=== PATIENT | male | born 1960 | race Caucasian/White ===

== ENCOUNTER 2023-09-17 10:48 | Outpatient (OUT) | payer MEDICARE, SELFPAY ==
--- NOTE | 2023-09-17 10:49 | VEIN_ITS ---
[facility] [place] [address] Patient Name: SUZANNA ESPINAL MRN: [id number] date: 1960 Sex: M Assigned Patient Location: Current Patient Location: Accession/Order Number: [id number] Exam Date: 09/17/2023 10:49 Report Date: 09/20/2023 15:14 At the request of: JORGE LUIS OWUSU Procedure: VC SEGMENTAL PRESSURES EXAM: BILATERAL LOWER EXTREMITY ARTERIAL SEGMENTAL PRESSURES HISTORY: I79.3 PVD Peripheral vascular disease Indication: Claudication COMPARISON: Venous reflux study same day FINDINGS: Segmental pressures presented as follows (right, left) in mmHg. Brachial: 95, 97. Upper thigh: NA/162. Lower thigh: 155/144. Calf: 159/150. DPA: 130/133. PROGRAM COORDINATOR EXECUTIVE EDUCATION: 141/142. 1st Toe: NA/110 MARIXA: 1.45, 1.46. The ABIs are abnormally high indicating calcification/vessel hardening PVR waveforms: Right leg: Thigh: Delayed systolic upstroke, blunted systolic peak, pulse elongation with presence of a dicrotic notch Above knee: Normal Below knee: Normal Right ankle: Left leg: Thigh: Delayed systolic upstroke, blunted systolic peak, pulse elongation with presence of a dicrotic notch Above knee: mild peripheral arterial disease Below knee: moderate peripheral arterial disease Right ankle: Delayed systolic upstroke, blunted systolic peak VEIN/VC SEGMENTAL PRESSURES IMPRESSION: Elevated ABIs suggesting vessel calcification/vessel hardening. Wave form suggests mild to moderate peripheral artery disease Electronically authenticated by: MATY STILL Date: 09/20/2023 15:14
--- NOTE | 2023-09-17 10:49 | VEIN_ITS ---
Patient Name: SUZANNA ESPINAL MR#: [id number] : 1960 Exam Date: 09/17/2023 Ordering Doctor: JORGE LUIS OWUSU M.D. RADIOLOGY REPORT PROCEDURE: VC EXT VENOUS REFLUX FAYE LMTD COMPARISON: None. INDICATIONS: I83.813 Pain due to varicose veins of bilateral legs TECHNIQUE: Duplex imaging of the lower extremity to assess the deep and superficial venous system for the presence of deep or superficial venous incompetence and to document the location and severity of disease. The study includes evaluation of the great saphenous vein (GSV), anterior accessory saphenous vein (AASV) and small saphenous vein (SSV). Patient scanned in reverse Trendelenburg and standing. FINDINGS: RIGHT LOWER EXTREMITY: Saphenofemoral Junction Reflux: YesNo 6.0mm sec GSV: Diam (mm) Reflux/ Time (sec) Proximal Thigh 5.8 No Mid Thigh 2.2 No Distal Thigh 3.1 No Prox Calf 2.9 No Mid Calf 2.0 No Saphenopopliteal Junction Reflux: 4.0mm No SSV: Proximal Calf 3.7 No Mid Calf 3.0 No AASV: Proximal Thigh 4.8 No Mid Thigh Distal Thigh Thrombi: No acute or chronic thrombus visualized Compressibility: Normal Flow: Normal Preforator: Right mid medial 2.6 mm with 0s of reflux Tech Note: Competent SFJ/SPJ. No patent varicose veins LEFT LOWER EXTREMITY: Saphenofemoral Junction Reflux: Yes 15.1 mm 1.2 sec GSV: Diam (mm) Reflux/Time (sec) Proximal Thigh 9.1 Yes 0.6 Mid Thigh 3.6 Yes 0.5 Distal Thigh 3.1 No Prox Calf 1.6 No Mid Calf 1.5 Yes 0.6 Saphenopopliteal Junction Relux: 3.7 mm No SSV: Proximal Calf 1.6 No Mid Calf 1.7 No AASV: Proximal Thigh 4.5 Yes 0.9 Mid Thigh 2.9 No Distal Thigh Thrombi: No acute or chronic thrombus visualized Compressibility: Normal Flow: Normal Braided Band Assembler: Left medial mid 2.8 mm 0 s of reflux; 2.3 mm with 0s of reflux Tech Note: Incompetent SFJ/competent SPJ. No patent varicose veins CONCLUSION: 1. Normal right leg 2. Borderline/minimal left great saphenous vein reflux with proximal dilatation and saphenofemoral junction reflux 3. Mild reflux proximal left anterior accessory saphenous vein 4. No patent varicose veins 1. Dictated by: Christiano Hull MD on 09/17/2023 at 13:05 Approved by: Christiano Hull MD on 09/17/2023 at 13:06
== END 2023-09-17 10:49 | disposition home or self-care (01) ==
LOC: VC 10:48
PROVIDERS: PCP Family Medicine; Visit Provider Student in an Organized Health Care Education/Training Program
DX: I83.813 Varicose veins of bilateral lower extremities with pain (principal); I73.9 Peripheral vascular disease, unspecified
CPT/HCPCS: 93923; 93970

== ENCOUNTER 2023-11-11 09:55 | Outpatient (OUT) | payer MEDICARE, SELFPAY ==
--- NOTE | 2023-11-11 10:08 | ECG_ITS ---
[facility] Test Date: 2023-11-11 Pat Name: SUZANNA ESPINAL Department: Room: - Gender: Male Feed Handler: : 1960 Requested By: Order Number: [id number] Reading MD: AGUSTO HERRERA Measurements Intervals Alvin Rate: 62 P: 22 ME: 173 QRS: -9 QRSD: 89 T: 26 QT: 401 QTc: 409 Interpretive Statements SINUS RHYTHM No previous ECG available for comparison Electronically Signed On 11-11-2023 21:45:37 EDT by AGUSTO HERRERA
--- OUTSIDE RECORDS SUMMARY | 2023-11-11 10:16 | XMS_ITS | CCD ---
Author Organization [facility] Care Team Providers Care Tomato Pulper Operator Name Role Phone IRMA TORRES Attending Lexie Roe Primary Care Unavailable Lexie Cannon Consulting Unavailable OFELIA DONOHUE Admitting UnavailOFELIA Murcia Attending Zehra Cannon MD Primary Care Unavailable OFELIA DONOHUE Attending Zehra Cannon MD Primary Care Unavailable Lexie Cannon Consulting Unavailable BRANDY GALE Attending Unavail kunal Cannon MD Primary Care Unavailable Lexie Cannon Consulting Unavailable IRMA TORRES Attending Rebecca Pascual MD Primary Care Unavailable IRMA TORRES Attending Rebecca Pascual MD Primary Care Unavailable JACINTO, DR MAR Attending Unavailable JACINTO, DR MAR Consulting Unavailable DR ZAID CASEY Primary Care Unavailable JACINTO, DR MAR Admitting Unavailable WAI DINH Attending Unavailable Ben Sheldon Consulting Unavailable WAI DINH Admitting Unavailable DR LEXIE CANNON Primary Care Unavailable WAI DINH Consulting Unavailable JORGE LUIS OWUSU Attending Unavailable LEXIE CANNON Referring Unavailable LEXIE CANNON Primary Care Unavailable JORGE LUIS OWUSU Attending Unavailable LEXIE CANNON Referring Unavailable LEXIE CANNON Primary Care Unavailable WAI DINH Attending Rebecca valentin Allergies Allergy Classification Reported Allergen(s) Allergy Type Date of Onset Reaction(s) Facility (1 source) Cephalexin; Translations: [Keflex] Drug Allergy [facility] Repository (1 source) Cephalexin; Translations: [CEPHALEXIN] Drug Allergy 12-06-2017 [facility] Repository Problems Active Problems Problem Classification Problem Date Documented Da te Episodic/Chronic Other connective tissue disease (1 source) Pain in lower limb Onset: 10-28-2023 Episodic Residual codes; unclassified (4 sources) Disorientation, unspecified; Translations: [DISORIENTATION UNSPECIFIED] Onset: 12-20-2020 Episodic Unclassified (1 source) Varicose Veins Onset: 10-28-2023 Unclassified (1 source) Bilateral Leg Pain Onset: 09-09-2023 Varicose veins of lower extremity (1 source) Varicose veins of bilateral lower extremities with pain; Translations: [Varicose veins of bilateral lower extremities with pain] Onset: 09-09-2023 Episodic Viral infection (1 source) COVID-19; Translations: [COVID-19] Onset: 04-16-2020 Past or Other Problems Problem Classification Problem Date Documented Da te Episodic/Chronic Immunizations and screening for infectious disease (3 sources) Contact with and (suspected) exposure to other viral communicable diseases; Translations: [CONTCT EXPS OTH VIRL COMMUNICABL DZ] Onset: 04-08-2020 Episodic Results Test Name Value Interpretation Reference Range Facility US Segmental Pressures/PVR, Bilateral, Loweron 07-13-2022 US Segmental Pressures/PVR, Bilateral, Lower COMPARISON: NONE. TECHNIQUE: Segmental pressures and waveforms of the bilateral lower extremities were obtained. FINDINGS: There are triphasic waveforms in the bilateral lower extremities from the thighs to the level of the ankles and toes. Segmental pressures are as follows in mm/Hg Right brachial 105, left brachial 113. Right lower extremity: Upper thigh 163, mid thigh 161, calf 131, ankle 155 PT, 131 DP, metatarsal 135, great toe 110. Left lower extremity: Upper thigh 166, mid thigh 160, calf 133, ankle 132 PT, 130 DP, metatarsal 135, great toe 91 IMPRESSION: The study is normal with triphasic waveforms and normal pressures of both lower extremities. Report reported and signed by ANG BRIONES on 07/15/2022 0921 Normal [facility] Construction Supervisor/Carpenter XR Ankle Complete Left*on XR Ankle Complete Left* Findings: Ankle mortise intact. No fracture, dislocation, bone lesion. IMPRESSION: Negative left ankle. Report reported and signed by Fletcher Gonzáles on 07/14/2022 1054 Normal [facility] Construction Supervisor/Carpenter XR Ankle Complete Righton XR Ankle Complete Right Findings: Ankle mortise intact. No fracture, dislocation, bone lesion. IMPRESSION: Negative right ankle. Report reported and signed by Fletcher Signer on 07/14/2022 1054 Normal [facility] Construction Supervisor/Carpenter XR Knee Complete Left Standi ngon 07-13-2022 XR Knee Complete Left Standing Findings: No fracture, dislocation, bone lesion, effusion. IMPRESSION: Negative left knee. Report reported and signed by Fletcher Signer on 07/14/2022 1053 Normal [facility] Construction Supervisor/Carpenter XR Knee Complete Right Stand ingon 07-13-2022 XR Knee Complete Right Standing Findings: No fracture, dislocation, bone lesion, effusion. IMPRESSION: Negative right knee. Report reported and signed by Fletcher Signer on 07/14/2022 1055 Normal [facility] Lipid Panelon 10-23-2021 Cholesterol [Mass/Vol] 115 mg/dL Low 125-200 [facility] Comment on above: Result Comment: Low risk < 200mg/dL Borderline risk 201-239 mg/dl High risk > or equal to 240 Performed By: #### 2 1436R, 873, 4021, 53839, 402X, 561 #### [facility] [address] [place] [address] Cholesterol in HDL [Mass/Vol] 30 mg/dL Low >40 [facility] Comment on above: Result Comment: High Cardiovascular Risk HDL <40 mg/dL Low Cardiovascular Risk HDL > or equal to 60 mg/dl Performed By: #### 2 1436R, 873, 4021, 21412, 402X, 561 #### [facility] [address] [place] [address] Cholesterol in LDL [Mass/Vol] 49 mg/dL Normal [facility] Comment on above: Result Comment: LDL ATP III CLASSIFICATION LDL less than 100 mg/dl Optimal LDL 100-129 mg/dl Near or above optimal LDL 130-159 Borderline high LDL 160-189 High LDL greater than 189 mg/dl Very High Performed By: #### 2 1436R, 873, 4021, 77774, 402X, 561 #### [facility] [address] [place] [address] Cholesterol in VLDL [Mass/Vol] 36 mg/dL Normal [facility] Comment on above: Performed By: #### 2 1436R, 873, 4021, 04141, 402X, 561 #### [facility] [address] [place] [address] Cholesterol.total/ Cholesterol in HDL [Mass ratio] 4 {ratio} Normal [facility] Comment on above: Performed By: #### 2 1436R, 873, 4021, 37735, 402X, 561 #### [facility] [address] [place] [address] Triglyceride [Mass/Vol] 178 mg/dL High 30-150 [facility] Comment on above: Result Comment: TRIG ATPIII CLASSIFICATIONS TRIG less than 150 mg/dl Normal TRIG 150-199 mg/dl Borderline High TRIG 200-500 mg/dl High TRIG greather than 500 mg/dl Very High Performed By: #### 2 1436R, 873, 4021, 14508, 402X, 561 #### [facility] [address] [place] [address] Microalbumin (with Creat)on 10-23-2021 mALB <1.2 Low [facility] Comment on above: Result Comment: Unab le to calculate mALB/Crea ratio, mALB is <1.2 mg/dL mALB reference range not established. Performed By: #### 2 1436R, 873, 4021, 69753, 402X, 561 #### [facility] [address] [place] [address] UCREA 271 mg/dL High 39-259 [facility] Comment on above: Performed By: #### 2 1436R, 873, 4021, 04314, 402X, 561 #### [facility] [address] [place] [address] Vitamin D 25-OHon 10-23-2021 VIT D 25 OH 47 ng/ml Normal >29 [facility] Comment on above: Result Comment: Yokasta min D Status Deficiency <20 ng/mL Insufficiency 20-29 ng/mL Optimal 30-100 ng/mL Possible Toxicity >=150 ng/mL Performed By: #### 2 1436R, 873, 4021, 09451, 402X, 561 #### [facility] [address] [place] [address] ALT (SGPT)on 09-25-2021 ALT [Catalytic activity/Vol] 30 U/L Normal 9-46 [facility] Comment on above: Result Comment: 04/16 Female reference range changed. Performed By: #### 2 1436R, 873, 4021, 97994, 402X, 561 #### [facility] [address] [place] [address] AST (SGOT)on 09-25-2021 AST [Catalytic activity/Vol] 25 U/L Normal 10-40 [facility] Comment on above: Performed By: #### A ST #### [facility] [address] [place] [id number] Complete Blood Count with Au to Diffon 07-17-2021 Basophils (Bld) [#/Vol] 0.06 10*3/uL Normal 0.00-0.20 [facility] Comment on above: Performed By: #### 2 1436R, 873, 4021, 33925, 402X, 561 #### [facility] [address] [place] [address] Basophils/100 WBC (Bld) 0.6 % Normal [facility] Comment on above: Performed By: #### 2 1436R, 873, 4021, 83600, 402X, 561 #### [facility] [address] [place] [address] Eosinophils (Bld) [#/Vol] 0.22 10*3/uL Normal 0.02-0.50 [facility] Comment on above: Performed By: #### 2 1436R, 873, 4021, 14028, 402X, 561 #### [facility] [address] [place] [address] Eosinophils/100 WBC (Bld) 2.3 % Normal [facility] Comment on above: Performed By: #### 2 1436R, 873, 4021, 05595, 402X, 561 #### [facility] [address] [place] [address] Erythrocyte distribution width (RBC) [Ratio] 12.7 % Normal 11.0-15.0 [facility] Comment on above: Performed By: #### 2 1436R, 873, 4021, 52471, 402X, 561 #### [facility] [address] [place] [address] Hematocrit (Bld) [Volume fraction] 47.1 % Normal 38.5-50.0 [facility] Comment on above: Performed By: #### 2 1436R, 873, 4021, 48019, 402X, 561 #### [facility] [address] [place] [address] Hemoglobin (Bld) [Mass/Vol] 15.4 g/dL Normal 13.0-17.1 [facility] Comment on above: Performed By: #### 2 1436R, 873, 4021, 95806, 402X, 561 #### [facility] [address] [place] [address] Lymphocytes (Bld) [#/Vol] 1.8 10*3/uL Normal 0.9-3.9 [facility] Comment on above: Performed By: #### 2 1436R, 873, 4021, 70864, 402X, 561 #### [facility] [address] [place] [address] Lymphocytes/100 WBC (Bld) 19.1 % Normal [facility] Comment on above: Performed By: #### 2 1436R, 873, 4021, 64013, 402X, 561 #### [facility] [address] [place] [address] MCH (RBC) [Entitic mass] 30.0 pg Normal 27.0-33.0 [facility] Comment on above: Performed By: #### 2 1436R, 873, 4021, 20453, 402X, 561 #### [facility] [address] [place] [address] MCHC (RBC) [Mass/Vol] 32.7 g/dL Normal 32.0-36.0 [facility] Comment on above: Performed By: #### 2 1436R, 873, 4021, 69413, 402X, 561 #### [facility] [address] [place] [address] MCV (RBC) [Entitic vol] 92 fL Normal 80-100 [facility] Comment on above: Performed By: #### 2 1436R, 873, 4021, 14582, 402X, 561 #### [facility] [address] [place] [address] Monocytes (Bld) [#/Vol] 0.7 10*3/uL Normal 0.2-0.9 [facility] Comment on above: Performed By: #### 2 1436R, 873, 4021, 22216, 402X, 561 #### [facility] [address] [place] [address] Monocytes/100 WBC (Bld) 7.3 % Normal [facility] Comment on above: Performed By: #### 2 1436R, 873, 4021, 83261, 402X, 561 #### [facility] [address] [place] [address] Neutrophils (Bld) [#/Vol] 6.8 10*3/uL Normal 1.5-7.8 [facility] Comment on above: Performed By: #### 2 1436R, 873, 4021, 16923, 402X, 561 #### [facility] [address] [place] [address] Neutrophils/100 WBC (Bld) 70.4 % Normal [facility] Comment on above: Performed By: #### 2 1436R, 873, 4021, 32967, 402X, 561 #### [facility] [address] [place] [address] Platelet mean volume (Bld) [Entitic vol] 13.30 fL High 7.50-12.50 [facility] Comment on above: Performed By: #### 2 1436R, 873, 4021, 31123, 402X, 561 #### [facility] [address] [place] [address] Platelets (Bld) [#/Vol] 208 10*3/uL Normal 140-400 [facility] Comment on above: Performed By: #### 2 1436R, 873, 4021, 61395, 402X, 561 #### [facility] [address] [place] [address] RBC (Bld) [#/Vol] 5.14 10*6/uL Normal 4.20-5.80 [facility] Construction Supervisor/Carpenter Comment on above: Performed By: #### 2 1436R, 873, 4021, 78705, 402X, 561 #### [facility] [address] [place] [address] RDW-SD 43.0 fL Normal 37.0-50.0 [facility] Construction Supervisor/Carpenter Comment on above: Performed By: #### 2 1436R, 873, 4021, 97022, 402X, 561 #### [facility] [address] [place] [address] WBC (Bld) [#/Vol] 9.7 10*3/uL Normal 3.8-11.0 Jesica rn [place] Construction Supervisor/Carpenter Comment on above: Performed By: #### 2 1436R, 873, 4021, 38022, 402X, 561 #### [facility] [address] [place] [address] Comprehensive Metabolic Pane abe 07-17-2021 Albumin [Mass/Vol] 4.3 g/dL Normal 3.6-5.1 Jesica rn [place] Construction Supervisor/Carpenter Comment on above: Performed By: #### 2 1436R, 873, 4021, 45705, 402X, 561 #### [facility] [address] [place] [address] Albumin/Globulin [Mass ratio] 2.0 {ratio} Normal 1.0-2.5 [facility] [employer] Supervisor/Carpenter Comment on above: Performed By: #### 2 1436R, 873, 4021, 88689, 402X, 561 #### [facility] [address] [place] [address] ALP [Catalytic activity/Vol] 128 U/L Normal 40-129 [facility] [employer] Supervisor/Carpenter Comment on above: Performed By: #### 2 1436R, 873, 4021, 30146, 402X, 561 #### [facility] [address] [place] [address] ALT [Catalytic activity/Vol] 25 U/L Normal 9-46 [facility] Supervisor/Carpenter Comment on above: Result Comment: 04/16 Female reference range changed. Performed By: #### 2 1436R, 873, 4021, 77283, 402X, 561 #### [facility] [address] [place] [address] Anion gap [Moles/Vol] 23 mmol/L High 12-20 [facility] Construction Supervisor/Carpenter Comment on above: Result Comment: Effe ctive 05/22/2019 reference range changed. Performed By: #### 2 1436R, 873, 4021, 81102, 402X, 561 #### [facility] [address] [place] [address] AST [Catalytic activity/Vol] 20 U/L Normal 10-40 [facility] Comment on above: Performed By: #### 2 1436R, 873, 4021, 47363, 402X, 561 #### [facility] [address] [place] [address] BUN/CREA 13 Ratio Normal 6-22 [facility] Comment on above: Performed By: #### 2 1436R, 873, 4021, 50671, 402X, 561 #### [facility] [address] [place] [address] Calcium [Mass/Vol] 9.6 mg/dL Normal 8.6-10.2 [facility] Comment on above: Performed By: #### 2 1436R, 873, 4021, 95644, 402X, 561 #### [facility] [address] [place] [address] Chloride [Moles/Vol] 103 mmol/L Normal 98-107 [facility] Comment on above: Performed By: #### 2 1436R, 873, 4021, 21296, 402X, 561 #### [facility] [address] [place] [address] CO2 [Moles/Vol] 20 mmol/L Normal 20-31 [facility] Comment on above: Performed By: #### 2 1436R, 873, 4021, 64499, 402X, 561 #### [facility] [address] [place] [address] Creatinine [Mass/Vol] 1.0 mg/dL Normal 0.7-1.4 [facility] Comment on above: Performed By: #### 2 1436R, 873, 4021, 83061, 402X, 561 #### [facility] [address] [place] [address] eGFRAA 99 mL/min/1.73m2 Normal >60 [facility] Comment on above: Performed By: #### 2 1436R, 873, 4021, 54994, 402X, 561 #### [facility] [address] [place] [address] eGFRNAA 81 mL/min/1.73m2 Normal >60 [facility] Construction Supervisor/Carpenter Comment on above: Performed By: #### 2 1436R, 873, 4021, 01933, 402X, 561 #### [facility] [address] [place] [address] Globulin (S) [Mass/Vol] 2.2 g/dL Normal 1.9-3.7 [facility] Construction Supervisor/Carpenter Comment on above: Performed By: #### 2 1436R, 873, 4021, 77890, 402X, 561 #### [facility] [address] [place] [address] Glucose [Mass/Vol] 116 mg/dL High 65-99 Jesica ibarra [place] Construction Supervisor/Carpenter Comment on above: Result Comment: For FASTING Glucose --- ADA reference ranges: Normal 65-99 mg/dl Prediabetes 100-125 Diabetes >/= 126 Performed By: #### 2 1436R, 873, 4021, 25122, 402X, 561 #### [facility] [address] [place] [address] Potassium [Moles/Vol] 4.3 mmol/L Normal 3.5-5.5 [facility] [employer] Supervisor/Carpenter Comment on above: Performed By: #### 2 1436R, 873, 4021, 71063, 402X, 561 #### [facility] [address] [place] [address] Protein [Mass/Vol] 6.5 g/dL Normal 6.1-8.1 Jesica ibarra [place] Construction Supervisor/Carpenter Comment on above: Performed By: #### 2 1436R, 873, 4021, 19318, 402X, 561 #### [facility] [address] [place] [address] Sodium [Moles/Vol] 142 mmol/L Normal 135-146 Jesica ibarra [place] Construction Supervisor/Carpenter Comment on above: Performed By: #### 2 1436R, 873, 4021, 26513, 402X, 561 #### [facility] [address] [place] [address] TBIL <0.3 Normal [facility] Construction Supervisor/Carpenter Comment on above: Performed By: #### 2 1436R, 873, 4021, 23973, 402X, 561 #### [facility] [address] [place] [address] Urea nitrogen [Mass/Vol] 13 mg/dL Normal 7-25 [facility] Construction Supervisor/Carpenter Comment on above: Performed By: #### 2 1436R, 873, 4021, 15746, 402X, 561 #### [facility] [address] [place] [address] Hemoglobin A1Con 07-17-2021 EAG 131.24 Normal [facility] [employer] Supervisor[employer]Carpenter Comment on above: Performed By: #### 2 1436R, 873, 4021, 09797, 402X, 561 #### [facility] [address] [place] [address] HbA1c (Bld) [Mass fraction] 6.2 % High 4.0-6.0 [facility] Super[facility]/Carpenter Comment on above: Performed By: #### 2 1436R, 873, 4021, 93192, 402X, 561 #### [facility] [address] [place] [address] LDL-Directon 07-17-2021 Cholesterol in LDL [Mass/Vol] 90 mg/dL Normal [facility] Comment on above: Result Comment: LDL ATP III CLASSIFICATION LDL less than 100 mg/dl Optimal LDL 100-129 mg/dl Near or above optimal LDL 130-159 Borderline high LDL 160-189 High LDL greater than 189 mg/dl Very High Performed By: #### 2 1436R, 873, 4021, 37778, 402X, 561 #### [facility] [address] [place] [address] Lipid Panelon 07-17-2021 Cholesterol [Mass/Vol] 188 mg/dL Normal 125-200 [facility] [employer] Supervisor/Carpenter Comment on above: Result Comment: Low risk < 200mg/dL Borderline risk 201-239 mg/dl High risk > or equal to 240 Performed By: #### 2 1436R, 873, 4021, 44938, 402X, 561 #### [facility] [address] [place] [address] Cholesterol in HDL [Mass/Vol] 30 mg/dL Low >40 [facility] Super[facility]arpenter Comment on above: Result Comment: High Cardiovascular Risk HDL <40 mg/dL Low Cardiovascular Risk HDL > or equal to 60 mg/dl Performed By: #### 2 1436R, 873, 4021, 27967, 402X, 561 #### [facility] [address] [place] [address] Cholesterol in VLDL [Mass/Vol] 84 mg/dL Normal [facility] Comment on above: Performed By: #### 2 1436R, 873, 4021, 74452, 402X, 561 #### [facility] [address] [place] [address] Cholesterol.total/ Cholesterol in HDL [Mass ratio] 6 {ratio} Normal [facility] Comment on above: Performed By: #### 2 1436R, 873, 4021, 78195, 402X, 561 #### [facility] [address] [place] [address] LDLD REFLEX LDL-DIRECT Normal [facility] Comment on above: Performed By: #### 2 1436R, 873, 4021, 81583, 402X, 561 #### [facility] [address] [place] [address] Triglyceride [Mass/Vol] 420 mg/dL High 30-150 [facility] Comment on above: Result Comment: TRIG ATPIII CLASSIFICATIONS TRIG less than 150 mg/dl Normal TRIG 150-199 mg/dl Borderline High TRIG 200-500 mg/dl High TRIG greather than 500 mg/dl Very High Performed By: #### 2 1436R, 873, 4021, 99788, 402X, 561 #### [facility] [address] [place] [address] Prostatic Specific Antigen, Totalon 07-17-2021 TPSA 1.120 ng/mL Normal <4.000 [facility] Comment on above: Result Comment: PSA Test Method: ECLIA/David e 601 Performed By: #### P SA #### [facility] [address] [place] [id number] Q - CORTISOL,TOTAL,SERUMon 0 07-17-2021 CORTISOL, TOTAL 6.9 mcg/dL Normal [facility] Comment on above: Order Comment: [facility] performed at: [facility], [address], [address] [facility], [place], [address], Golf Sales Manager: Joe Grossman MD [facility] Date/Time: [facility] Results Received Date/Time: [facility] Reported Date/Time: FASTING: UNKNOWN Result Comment: Refe rence Range: For 8 a.m.(7-9 a.m.) Specimen: 4.0-22.0 Reference Range: For 4 p.m.(3-5 p.m.) Specimen: 3.0-17.0 * Please interpret above results accordingly * Performed By: #### 2 1436R, 873, 4021, 80909, 402X, 561 #### [facility] [address] [place] [address] Q - DHEA SULFATEon DHEA SULFATE 34 mcg/dL Normal 32-[address] [facility] Comment on above: Order Comment: [facility] performed at: [facility] [employer] [facility], [address] [place] [address], [address] [place] [address], [id number], Golf Sales Manager: Joe Grossman MD [facility] Date/Time: [facility] Results Received Date/Time: [facility] Reported Date/Time: FASTING: UNKNOWN Result Comment: DHEA-S values fall with advancing age. For reference, the reference intervals for 31-40 year old patients are: Male: 93-415 mcg/dL Female: 19-237 mcg/dL Performed By: #### 2 1436R, 873, 4021, 08161, 402X, 561 #### [facility] [address] [place] [address] Q - ESTRADIOLon 07-17-2021 ESTRADIOL 57 pg/mL High < OR = 39 [facility] Comment on above: Order Comment: [facility] performed at: [facility] [facility], [address] [place] [address], [address] [place] [address], [phone], Golf Sales Manager: Joe Grossman MD [facility] Date/Time: [facility] Results Received Date/Time: [facility] Reported Date/Time: FASTING: UNKNOWN Result Comment: Refe rence range established on post-pubertal patient population. No pre-pubertal reference range established using this assay. For any patients for whom low Estradiol levels are anticipated (e.g. males, pre-pubertal children and hypogonadal/post-menopausal females), the [facility] Estradiol, Ultrasensitive, LCMSMS assay is recommended (order code 51889). Please note: patients being treated with the drug fulvestrant (Faslodex(R)) have demonstrated significant interference in immunoassay methods for estradiol measurement. The cross reactivity could lead to falsely elevated estradiol test results leading to an inappropriate clinical assessment of estrogen status. [facility] order code [id number], Ultrasensitive LC/MS/MS demonstrates negligible cross reactivity with fulvestrant. Performed By: #### 2 1436R, 873, 4021, 76593, 402X, 561 #### [facility] [address] [place] [address] Q - INSULIN,SERUMon 07-18-19 INSULIN 118.6 uIU/mL [facility] Construction Supervisor/Carpenter Comment on above: Order Comment: [facility] performed at: Q, [facility], [address] [place] [address], [address] [place], [address], Golf Sales Manager: Joe Grossman MD [facility] Collection Date/Time: [facility] Results Received Date/Time: [facility] Reported Date/Time: [id number] FASTING: UNKNOWN Result Comment: Refe rence Range < or = 19.6 Risk: Optimal < or = 19.6 Moderate NA High >19.6 Adult cardiovascular event risk category cut points (optimal, moderate, high) are based on [facility] population data from 04/2011. This insulin assay shows strong cross-reactivity for some insulin analogs (lispro, aspart, and glargine) and much lower cross-reactivity with others (detemir, glulisine). Performed By: #### 2 1436R, 873, 4021, 16375, 402X, 561 #### [facility] [address] [place] [address] Q - TESTOSTERONE,FREE (LC/MS /MS)on 07-17-2021 TESTOSTERONE, FREE 49.2 pg/mL Normal 46.0-224.0 [facility] Comment on above: Order Comment: [facility] performed at: [facility], [facility], [address], [place], [place], , Golf Sales Manager: Ariel Bush M.D.,PhD [facility] Collection Date/Time: [facility] Results Received Date/Time: [facility] Reported Date/Time: FASTING: UNKNOWN Result Comment: The concentration of free testosterone is derived from a mathematical model using total testosterone by LCMSMS, sex hormone binding globulin and albumin. This test was developed and its analytical performance characteristics have been determined by [facility] [place], [place]. It has not been cleared or approved by the U.S. Food and Drug Administration. This assay has been validated pursuant to the CLIA regulations and is used for clinical purposes. Performed By: #### 2 1436R, 873, 4021, 87996, 402X, 561 #### [facility] [address] [place] [address] Q - TESTOSTERONE,TOTAL,MALES (ADULT),IMMUNOASAYon 07-17-2021 TESTOSTERONE, TOTAL, MALES (ADULT), [place] 551 ng/dL Normal 250-827 [facility] Comment on above: Order Comment: [facility] performed at: [facility], [facility], [address] [facility], [address] [place], [address], Golf Sales Manager: Joe Grossman MD [facility] Collection Date/Time: [facility] Results Received Date/Time: [facility] Reported Date/Time: FASTING: UNKNOWN Performed By: #### 2 1436R, 873, 4021, 29747, 402X, 561 #### [facility] [address] [place] [address] TSH w/ Reflex to Free T4on 0 07-17-2021 TSH 0.963 uIU/mL Normal 0.400-4.500 [facility] Construction Supervisor/Carpenter Comment on above: Performed By: #### 2 1436R, 873, 4021, 95460, 402X, 561 #### [facility] [address] [place] [address] Vitamin B12/Folateon 022 Cobalamin (Vitamin B12) [Mass/Vol] 497 pg/mL Normal 211-946 [facility] Construction Supervisor/Carpenter Comment on above: Performed By: #### 2 1436R, 873, 4021, 85364, 402X, 561 #### [facility] [address] [place] [address] FOL 16.8 ng/mL Normal >4.7 [facility] Construction Supervisor/Carpenter Comment on above: Result Comment: Refe rence range change 04/02/2017. Prior reference range F 4.8-37.3 ng/mL, M 4.5-32.2 ng/mL. Performed By: #### 2 1436R, 873, 4021, 21614, 402X, 561 #### [facility] [address] [place] [address] Vitamin D 25-OHon 07-17-2021 VIT D 25 OH 26 ng/ml Low >29 [facility] Construction Supervisor/Carpenter Comment on above: Result Comment: Y[place]asta min D Status Deficiency <20 ng/mL Insufficiency 20-29 ng/mL Optimal 30-100 ng/mL Possible Toxicity >=150 ng/mL Performed By: #### 2 1436R, 873, 4021, 30107, 402X, 561 #### [facility] [address] [place] [address] CT HEAD WO CONon 12-20-2020 CT HEAD WO CON EXAMINATION: CT HEAD WO CON HISTORY: Disorientated memory loss. COMPARISON: None. TECHNIQUE: CT examination of the head without IV contrast. Dose reduction techniques were achieved by using automated exposure control and/or adjustment of mA and/or kV according to patient size and/or use of iterative reconstruction technique. FINDINGS: The ventricles and basilar cisterns are within normal limits. Marked hypodensities periventricular regions and centrum semiovale consistent with microangiopathic change and previous vascular insult. No acute intra-axial or extra-axial hemorrhage. No midline shift mass effect or edema. IMPRESSION: No acute hemorrhage Electronically authenticated by: BEN SHELDON Date: 2020-12-20 15:18 Normal [facility] COVID-19 PCRon 04-10-2020 SARS-CoV-2 (COVID-19) RNA HELENE+probe Ql (Unsp spec) Detected Abnormal Not Detected [facility] Comment on above: Result Comment: This nucleic acid amplification test was developed and its performance characteristics determined by [facility]. Nucleic acid amplification tests include PCR and TMA. This test has not been FDA cleared or approved. This test has been authorized by FDA under an Emergency Use Authorization (EUA). This test is only authorized for the duration of time the declaration that circumstances exist justifying the authorization of the emergency use of in vitro diagnostic tests for detection of SARS-CoV-2 virus and/or diagnosis of COVID-19 infection under section 564(b)(1) of the Act, 21 U.S.C. 360bbb-3(b) (1), unless the authorization is terminated or revoked sooner. When diagnostic testing is negative, the possibility of a false negative result should be considered in the context of a patient's recent exposures and the presence of clinical signs and symptoms consistent with COVID-19. An individual without symptoms of COVID-19 and who is not shedding SARS-CoV-2 virus would expect to have a negative (not detected) result in this assay. Performed By: #### C VDPCR #### [facility] [address] [place] [address] [facility] Neurosurgery Office/Clinic Chris armando 2018 Neurosurgery Office/Clinic Note Chief Complaint PT STATES- POST OP (07/01) Physical Exam Vitals & Measurements BP: 138/86 HT: 185 cm WT: 124.6 kg DOSE WT: 124.6 kg BMI: 36.41 Additional Vitals Body Mass Index Measured: 36.41 kg/m2 BP Position/Location: Sitting, Left arm Peripheral Pulse Rate: 76 bpm Assessment/Plan 1. History of fusion of cervical spine Ordered: Referral to Physical Therapy 2. Cervical radiculopathy Ordered: Referral to Physical Therapy 3. DDD (degenerative disc disease), cervical Orders: External Referral Physician Comments Patient is a pleasant 58-year-old male with a history of previous C5 [address] Ortiz in [place] in 2014 who presents to the outpatient neurosurgical clinic today for continued postoperative follow-up. Patient is status removal of hardware at C5 6 with C6 7 ACDF performed 07/01/18 secondary to adjacent segment disease with intractable right C7 radiculopathy and early motor neuropathy. Initially, an artificial disc was considered/planned, however the decision was made to proceed with ACDF intraoperatively based on the patient's anatomy. Patient has done well postoperatively with resolution in his pre-operative pain syndrome and he denies complaints today. Patient reports complete resolution of his preoperative right upper extremity C7 radicular pain. He denies significant neck pain or myospasms. He denies radicular pain into his upper extremities. He denies numbness or paresthesias in his upper extremities. He denies motor weakness in the upper extremities and feels that his preoperative right tricep weakness has resolved. He denies decreased dexterity. He denies headaches. He denies incisional problems or incisional drainage. He denies fevers, chills, nausea, or vomiting. He denies dysphagia. He is no longer requiring narcotics or medication management. Patient reports compliance with his cervical collar. Flexion/extension x-rays of the cervical spine completed prior to office visit today 09/29/18 appear satisfactory with good hardware placement, no suggestion of hardware loosening, and adequate bony integration in the interbody space. On exam in the office, patient presents in a Mumford collar with proper fit and alignment. Trachea is midline with easy mobilization and vocal quality is normal. Anterior cervical incision is well-healed without surrounding erythema, edema, induration, or tenderness to palpation. Cervical spine is without deformities. Minimal myospasms are noted throughout the dorsal cervical paravertebral musculature without associated tenderness to palpation. Muscle strength is 5 out of 5 and equal bilateral upper extremities. DTRs are 2 out of 4 and equal bilateral upper extremities. Gait is normal. At this time, patient is approximately 3 months postop from a C6 7 ACDF. He has done well postoperatively with resolution in his preoperative right C7 radicular syndrome and denies complaints today. He is very satisfied with his progress thus far. His incision has healed well without suggestion of infectious complications and flexion/extension x-rays of the cervical spine prior to office visit today appear satisfactory with suggestion of a solid arthrodesis. That said, patient will be mobilized out of his cervical collar. He is to continue to avoid aspirin/NSAIDs for a minimum of 6 months postoperatively. He may continue to drive, lift up to 15-20 pounds, and ease into light activity. He should not participate in any heavy physical activity until completion of post operative physical therapy and an order is provided. Patient will initiate post operative physical therapy and follow up in our office in 4-6 weeks. He is to call sooner with changes, problems, or concerns. Patient states understanding and is in agreement with the above-stated plan. Patient's case is discussed with Dr. Donohue who is in agreement with the above-stated plan. Problem List/Past Medical History Ongoing Cervical radiculopathy DDD (degenerative disc disease), cervical History of fusion of cervical spine HTN - Hypertension Hyperlipidemia Neck pain JUAN C (obstructive sleep apnea) Pain Historical No qualifying data Procedure/Surgical History Appendectomy CERVICAL FUSION Discectomy Cervical Anterior (Left) (07/01/2018) EXPLORATION OF SPINAL FUSION (07/01/2018) INSJ BIOMECHANICAL DEVICE (07/01/2018) NECK SPINE FUSE&REMOV BEL C2 (07/01/2018) SP BONE ALGRFT STRUCT ADD-ON (07/01/2018) Medications lisinopril 10 mg oral tablet, 20 mg, 2 tabs, Oral, Daily Allergies Keflex (hives) Social History Alcohol Never Exercise Nutrition/Health Regular, Caffeine intake amount: 1 cup of coffee per day and 2 pops per day. Substance Abuse Denies All Tobacco Former smoker, quit more than 30 days ago Use:. Family History Breast cancer: Mother and Sibling. Diabetes mellitus: Father, Grandfather (P) and Sibling. Fibromyalgia: Mother. Malignant tumor of lung: Grandfather (M). Stroke: Mother, Father, Grandmother (M) and Grandmother (P). Diagnostic Results No qualifying data available (XRay) No qualifying data available (CT) No qualifying data available (Ultrasound) No qualifying data available (MRI) Electronically signed by _ Irma Torres PA-C 09/29/18 12:06 EDT Normal [facility] XR Spine Cervical 2 or 3 Samuel martinez 2018 XR Spine Cervical 2 or 3 Views Views: Lateral neutral, flexion, and extension Indication: Anterior cervical spine surgery 219 in 58 years Male Comparisons: 08/12/2018 Findings: There has been anterior cervical fusion at C6-7 with plate and screws, and bony fusion at C5-6 and C6-7. The past there were plates and screws at C5-6 which have now been removed. The pharynx, epiglottis, vallecula, and upper airway are unremarkable. The prevertebral soft tissues and spinolaminar line are normal. There is no spinal stenosis. There is no fracture, subluxation, lytic or blastic lesion. Disc Height: Residual discs are normal Vertebral body height: Normal The odontoid process is normal. There is no instability on flexion or extension Impression: Revision of the C5-6 hardware fusion with removal of plate and screws and new C6-7 hardware and bony fusion. No instability on flexion or extension Final Dictated by: Franck Rodriguez MD Dictated DT/TM: 2018 11:18 am Signed by: Franck Rodriguez MD Signed (Electronic Signature): 2018 11:22 am (If Report Is Signed, Electronically Signed in Other Vendor System) Normal [facility] Neurosurgery Office/Clinic N tr 08-18-2018 Neurosurgery Office/Clinic Note Chief Complaint PT STATES- POST OP VISIT (CERVICAL FUSION 07/01) Physical Exam Vitals & Measurements BP: 130/78 HT: 185 cm WT: 122.1 kg DOSE WT: 122.1 kg BMI: 35.68 Additional Vitals Body Mass Index Measured: 35.68 kg/m2 BP Position/Location: Sitting, Left arm Peripheral Pulse Rate: 68 bpm Assessment/Plan 1. History of fusion of cervical spine Ordered: XR Spine Cervical 2 or 3 Views 2. Cervical radiculopathy Ordered: XR Spine Cervical 2 or 3 Views 3. DDD (degenerative disc disease), cervical Ordered: XR Spine Cervical 2 or 3 Views Physician Comments Patient is a pleasant 57-year-old male with a history of previous C5 [address] Ortiz in [place] in 2014 who presents to the outpatient neurosurgical clinic today for continued postoperative follow-up. Patient is status removal of hardware at C5 6 with C6 7 ACDF performed 07/01/18 secondary to adjacent segment disease with intractable right C7 radiculopathy and early motor neuropathy. Initially, an artificial disc was considered/planned, however the decision was made to proceed with ACDF intraoperatively based on the patient's anatomy. Patient has done well postoperatively with resolution in his pre-operative pain syndrome and he denies complaints today. Patient reports complete resolution of his preoperative right upper extremity C7 radicular pain. He denies significant neck pain or myospasms. He denies radicular pain into his upper extremities. He denies numbness or paresthesias in his upper extremities. He denies motor weakness in the upper extremities and feels that his preoperative right tricep weakness has resolved. He denies decreased dexterity. He denies headaches. He denies incisional problems or incisional drainage. He denies fevers, chills, nausea, or vomiting. He notes only very minimal dysphagia which continues to lessen with time. He is no longer requiring narcotics and reports rare use of baclofen. Patient reports compliance with his cervical collar. AP/lateral x-rays of the cervical spine completed prior to office visit today (08/12/18) appears satisfactory with good hardware placement, no suggestion of hardware loosening, and early bony integration in the interbody space. On exam in the office, patient presents in a Mumford collar with proper fit and alignment. Trachea is midline with easy mobilization and vocal quality is normal. Anterior cervical incision is well-healed without surrounding erythema, edema, induration, or tenderness to palpation. Cervical spine is without deformities. Minimal myospasms are noted throughout the dorsal cervical paravertebral musculature without associated tenderness to palpation. Muscle strength is 5 out of 5 and equal bilateral upper extremities. DTRs are 2 out of 4 and equal bilateral upper extremities. Gait is normal. At this time, patient is approximately 6 weeks postop from a C6 7 ACDF. He has done well postoperatively with resolution in his preoperative right C7 radicular syndrome and denies complaints today. He is very satisfied with his progress thus far. His incision has healed well without suggestion of infectious complications and new AP/lateral x-rays of the cervical spine from 08/12/18 appear satisfactory. That said, patient is to continue in his cervical collar. He is to continue to avoid aspirin/NSAIDs for a minimum of 6 months postoperatively. He may continue to drive, lift up to 10 pounds, and continue sedentary work duties. He is encouraged to ambulate, but should not participate in any heavier physical activity than walking. Patient will have flexion/extension x-rays of the cervical spine out of the collar in 6 weeks in follow-up in our office at that time. He is to call sooner with changes, problems, or concerns. Patient states understanding and is in agreement with the above-stated plan. Patient's case is discussed with Dr. Donohue who is in agreement with the above-stated plan. Problem List/Past Medical History Ongoing Cervical radiculopathy DDD (degenerative disc disease), cervical History of fusion of cervical spine HTN - Hypertension Hyperlipidemia Neck pain JUAN C (obstructive sleep apnea) Pain Historical No qualifying data Procedure/Surgical History Appendectomy CERVICAL FUSION Discectomy Cervical Anterior (Left) (07/01/2018) EXPLORATION OF SPINAL FUSION (07/01/2018) INSJ BIOMECHANICAL DEVICE (07/01/2018) NECK SPINE FUSE&REMOV BEL C2 (07/01/2018) SP BONE ALGRFT STRUCT ADD-ON (07/01/2018) Medications baclofen 10 mg oral tablet, 10 mg, Oral, [id number] Times, Not taking lisinopril 10 mg oral tablet, 20 mg, 2 tabs, Oral, Daily Allergies Keflex (hives) Social History Alcohol Never Exercise Nutrition/Health Regular, Caffeine intake amount: 1 cup of coffee per day and 2 pops per day. Substance Abuse Denies All Tobacco Former smoker, quit more than 30 days ago Use:. Family History Breast cancer: Mother and Sibling. Diabetes mellitus: Father, Grandfather (P) and Sibling. Fibromyalgia: Mother. Malignant tumor of lung: Grandfather (M). Stroke: Mother, Father, Grandmother (M) and Grandmother (P). Diagnostic Results No qualifying data available. No qualifying data available. No qualifying data available. No qualifying data available. Electronically signed by _ Irma Torres PA-C 08/18/18 13:21 EDT Electronically signed by _ Davion Patel MD 02/13/2019 07:46 EDT Normal [facility] XR Spine Cervical 2 or 3 Samuel martinez 08-12-2018 XR Spine Cervical 2 or 3 Views History: Postoperative cervical fusion. TECHNIQUE: 2 views of the cervical spine were obtained compared to 07/11/2018. FINDINGS: The alignment is normal. There are mild degenerative changes C4-5 disc space. There is been fusion of C5-C7 with metallic plate anterior to C6 and C7 no fracture, compression deformity or subluxation is seen. No complication involving the hardware. IMPRESSION: Stable postoperative changes. No acute process or complication is seen. Final Dictated by: Suzanna Gonzalez MD Dictated DT/TM: 08/12/2018 4:48 pm Signed by: Suzanna Gonzalez MD Signed (Electronic Signature): 08/12/2018 4:49 pm (If Report Is Signed, Electronically Signed in Other Vendor System) Normal [facility] Neurosurgery Office/Clinic N tr 07-22-2018 Neurosurgery Office/Clinic Note Chief Complaint PT STATES- CERVICAL FUSION- POST OP 07/01 Physical Exam Vitals & Measurements BP: 104/72 HT: 185 cm WT: 119 kg DOSE WT: 119 kg BMI: 34.77 Additional Vitals Body Mass Index Measured: 34.77 kg/m2 BP Position/Location: Sitting, Left arm Peripheral Pulse Rate: 88 bpm Assessment/Plan 1. History of fusion of cervical spine Ordered: XR Spine Cervical 2 or 3 Views 2. DDD (degenerative disc disease), cervical 3. Cervical radiculopathy Physician Comments Patient is a pleasant 57-year-old male with a history of previous C5 [address] Ortiz in [place] in 2014 who presents to the outpatient neurosurgical clinic today for continued postoperative follow-up. Patient is status removal of hardware at C5 6 with C6 7 ACDF performed 07/01/18 secondary to adjacent segment disease with intractable right C7 radiculopathy and early motor neuropathy. Initially, an artificial disc was considered/planned, however the decision was made to proceed with ACDF intraoperatively based on the patient's anatomy. Patient has done well postoperatively. He was seen in our office 07/11/18 (approximately 10 days postop) with complaints of myospasm and intrascapular pain. AP/lateral x-rays of the cervical spine were obtained and appeared satisfactory. Patient was reassured and advised to utilize his muscle relaxers as prescribed. Today, patient states that the previous issues have dissipated with time and medication management, such that at the time of office visit today, he denies complaints. Patient reports complete resolution of his preoperative right upper extremity C7 radicular syndrome. He denies significant neck pain or myospasms. He denies radicular pain into his upper extremities. He denies numbness or paresthesias in his upper extremities. He denies motor weakness in the upper extremities and feels that his preoperative right tricep weakness has resolved. He denies decreased dexterity. He denies headaches. He denies incisional problems or incisional drainage. He denies fevers, chills, nausea, or vomiting. He notes only very minimal dysphagia which continues to lessen with time. He is no longer requiring narcotics and reports rare use of baclofen. On exam in the office, patient presents in a Mumford collar with proper fit and alignment. Trachea is midline with easy mobilization and vocal quality is normal. Anterior cervical incision is well-healed without surrounding erythema, edema, induration, or tenderness to palpation. Good approximation of incision borders without drainage or dehiscence. Cervical spine is without deformities. Minimal myospasms are noted throughout the dorsal cervical paravertebral musculature without associated tenderness to palpation. Muscle strength is 5 out of 5 and equal bilateral upper extremities. DTRs are 2 out of 4 and equal bilateral upper extremities. Gait is normal. At this time, patient is approximately 3 weeks postop from a C6 7 ACDF. He has done well postoperatively with resolution in his preoperative right C7 radicular syndrome and denies complaints today. He is very satisfied with his progress thus far. His incision has healed well without suggestion of infectious complications and AP/lateral x-rays of the cervical spine from 07/11/18 appears satisfactory. That said, patient is to continue in his cervical collar. He is to continue to avoid aspirin/NSAIDs for a minimum of 6 months postoperatively. He will be released to drive, lift up to 10 pounds, and return to sedentary work duties. He is encouraged to ambulate, but should not participate in any heavier physical activity than walking. Patient will have new AP and lateral x-rays of the cervical spine in 4 weeks in follow-up in our office at that time. He is to call sooner with changes, problems, or concerns. Patient states understanding and is in agreement with the above-stated plan. Patient's case is discussed with Dr. Donohue who is in agreement with the above-stated plan. Problem List/Past Medical History Ongoing Cervical radiculopathy DDD (degenerative disc disease), cervical History of fusion of cervical spine HTN - Hypertension Hyperlipidemia Neck pain JUAN C (obstructive sleep apnea) Pain Historical No qualifying data Procedure/Surgical History Appendectomy CERVICAL FUSION Discectomy Cervical Anterior (Left) (07/01/2018) EXPLORATION OF SPINAL FUSION (07/01/2018) INSJ BIOMECHANICAL DEVICE (07/01/2018) NECK SPINE FUSE&REMOV BEL C2 (07/01/2018) SP BONE ALGRFT STRUCT ADD-ON (07/01/2018) Medications baclofen 10 mg oral tablet, 10 mg, Oral, [id number] Times lisinopril 10 mg oral tablet, 20 mg, 2 tabs, Oral, Daily Allergies Keflex (hives) Social History Alcohol Never Exercise Nutrition/Health Regular, Caffeine intake amount: 1 cup of coffee per day and 2 pops per day. Substance Abuse Denies All Tobacco Former smoker, quit more than 30 days ago Use:. Family History Breast cancer: Mother and Sibling. Diabetes mellitus: Father, Grandfather (P) and Sibling. Fibromyalgia: Mother. Malignant tumor of lung: Grandfather (M). Stroke: Mother, Father, Grandmother (M) and Grandmother (P). Diagnostic Results No qualifying data available. No qualifying data available. No qualifying data available. No qualifying data available. Electronically signed by _ Irma Torres PA-C 07/22/18 11:01 EST Normal [facility] XR Spine Cervical 2 or 3 Samuel martinez 07-13-2018 XR Spine Cervical 2 or 3 Views C-spine radiographs on 07/11/2018 Clinical History: Postoperative evaluation Comparison: C-spine radiographs on 03/16/2018 Findings: 2 views of the cervical spine were obtained. The vertebral body heights and alignment are within normal limits. No radiographic evidence of acute fracture or dislocation. Bony fusion of the vertebral bodies of C5 and C6 with interval removal of the fusion hardware at this level. Postoperative changes compatible with anterior and interbody fusion at C6-C7. Impression: Postoperative changes compatible with anterior and interbody fusion at C6-C7 in satisfactory alignment. Bony fusion of the vertebral bodies of C5 and C6 with interval removal of the hardware at this level... Final Dictated by: Trip Hilario MD Dictated DT/TM: 07/13/2018 11:32 am Signed by: Trip Hilario MD Signed (Electronic Signature): 07/13/2018 11:41 am (If Report Is Signed, Electronically Signed in Other Vendor System) Normal [facility] Neurosurgery Office/Clinic N tr 07-11-2018 Neurosurgery Office/Clinic Note Chief Complaint Patient present for an issue with his collar after cervical surgery History of Present Illness The patient is a pleasant 57-year-old gentleman who presents to the neurosurgical office for a postoperative visit. He is currently 10 days status post removal of C5 and Sada of the plate and exploration of fusion as well as C6 7 anterior cervical discectomy with interbody fusion and osteo-synthetic plating using Medtronic [place] Elite plate. The patient presents secondary to concern regarding fit of his hard cervical collar as he finds it allows for quite a bit of movement, especially upon lateral rotation of the neck. He additionally notes rather severe pain throughout the intrascapular area most often occurring when he removes his collar to take a shower. This pain is described as severe enough to take his breath away such as being punched between the shoulder blades. He additionally notes intermittent aching/throbbing throughout the bilateral forearms most often when using the hands/arms outstretched in front of him. He denies upper extremity numbness or paresthesia. He denies fever, chills, nausea or vomiting. His appetite is normal. He denies bowel or bladder incontinence; no saddle paresthesia. He denies tachycardia, chest pain or shortness of breath. He completed his postoperative antibiotic and steroid course and is avoiding NSAIDs as directed. He typically will use tramadol at night before bed and Tylenol on occasion as needed during the day. He uses his baclofen only on rare occasion as needed. He denies incisional redness, warmth, swelling or drainage. Review of Systems Constitutional: [No fevers, chills, sweats] Eye: [No recent visual problems] ENMT: [No ear pain, nasal congestion, sore throat] Respiratory: [No shortness of breath, cough] Cardiovascular: [No Chest pain, palpitations, syncope] Gastrointestinal: [No nausea, vomiting, diarrhea, bowel incontinence] Genitourinary: [No hematuria, bladder incontinence] Physical Exam Vitals & Measurements BP: 116/88 HT: 185 cm WT: 119.8 kg DOSE WT: 119.8 kg BMI: 35 Additional Vitals Body Mass Index Measured: 35 kg/m2 BP Position/Location: Sitting, Left arm Peripheral Pulse Rate: 64 bpm The patient is pleasant, conversant, answering questions and following commands easily. He is alert and oriented. Speech is appropriate. He presents in an [place] cervical collar though there is several centimeters of gapping between the collar chin rest and the patient's jaw which was adjusted for proper fit. A collar was then removed at the time of today's visit for further examination. Left anterior neck incision with Steri-Strips in place. No obvious erythema, edema or warmth. Trachea is midline. Normal voice quality. The patient demonstrates normal respiratory effort. He is found to have mild tenderness to palpation throughout the intrascapular with mild diffuse myospasm in the areas. Upper extremity motor exam reveals 5/5 strength, symmetric bilaterally. He has regained trapezial muscle strength right side. 2+ radial pulses. Gait reveals normal base, station, liz and stride length. Assessment/Plan 1. S/P cervical spinal fusion Ordered: XR Spine Cervical 2 or 3 Views 2. Muscle spasm Ordered: XR Spine Cervical 2 or 3 Views The patient is a pleasant 57-year-old gentleman currently 10 days status post removal of C5 6 [place] of the plate and exploration of fusion followed by C6 7 anterior cervical discectomy with interbody fusion and osteo-synthetic plating with Medtronic [place] over the plate. Surgery was completed 07/01/[address] 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 At this time, the patient appears to be having pain related to myospasm at times when collar is removed such as when he takes a shower. I did discuss continuing his muscle relaxant as well as utilizing alternative methods such as ice and heat to the area for added benefit. It is difficult to discern the cause for the throbbing sensation throughout his forearms though may be related to post neuro decompression versus residual from intraoperative neuro monitoring. We will continue to monitor this in the ongoing postoperative. He will undergo a set of AP and lateral x-rays of the cervical spine following today's visit and will return to the neurosurgical office at his 3 week postoperative appointment. Restrictions otherwise remain the same. He will notify the office of any further questions, problems or concerns. The patient notes understanding of the information discussed at the time of today's visit, questions answered. This patient was discussed with Dr. Donohue personally met with and examined him at the time of today's visit. He is in agreement with the above-mentioned plan of care. Problem List/Past Medical History Ongoing Cervical radiculopathy DDD (degenerative disc disease), cervical History of fusion of cervical spine HTN - Hypertension Hyperlipidemia Neck pain JUAN C (obstructive sleep apnea) Pain Historical No qualifying data Procedure/Surgical History Appendectomy CERVICAL FUSION Discectomy Cervical Anterior (Left) (07/01/2018) EXPLORATION OF SPINAL FUSION (07/01/2018) INSJ BIOMECHANICAL DEVICE (07/01/2018) NECK SPINE FUSE&REMOV BEL C2 (07/01/2018) SP BONE ALGRFT STRUCT ADD-ON (07/01/2018) Medications amitriptyline 25 mg oral tablet, 25 mg, 1 tabs, Oral, HS (at bedtime), PRN baclofen 10 mg oral tablet, 10 mg, Oral, [id number] Times Bactrim DS 800 mg-160 mg oral tablet, 1 tabs, Oral, BID lisinopril 10 mg oral tablet, 20 mg, 2 tabs, Oral, Daily Allergies Keflex (hives) Social History Alcohol Never Exercise Nutrition/Health Regular, Caffeine intake amount: 1 cup of coffee per day and 2 pops per day. Substance Abuse Denies All Tobacco Former smoker, quit more than 30 days ago Use:. Family History Breast cancer: Mother and Sibling. Diabetes mellitus: Father, Grandfather (P) and Sibling. Fibromyalgia: Mother. Malignant tumor of lung: Grandfather (M). Stroke: Mother, Father, Grandmother (M) and Grandmother (P). Electronically signed by _ Brandy Armando PA-C 07/11/18 17:04 EST Normal [facility] Inpatient Clinical Summaryon 07-03-2018 Inpatient Clinical Summary [id number] [address] Clinical Summary Person Information Name: Suzanna Espinal Age: 57 Years : 1960 Sex: Male PCP: MD SOCO Cannon Jennifer Marital Status: PCP: Race: White Ethnicity: Not or Language: Latvian Visit Id: Visit Reason: Speciality: Acuity: Enc Type: Observation Med Service: Surgery Arrival: 07/01/2018 06:27:23 Discharge: Dispo Type: Address: [address] [place] [address] [facility] [address] Diagnosis: 1:Cervical radiculopathy; 2:DDD (degenerative disc disease), cervical; 3:History of fusion of cervical spine Discharged To: Home Treatments: Devices/Equipment: Professional Skilled Services: Special Services and Community Resources: Mode of Discharge Transportation: Discharge Orders [facility] Functional Status: Sensory Deficits: None History of Falls: None Mobility Assistance Prior to Admission: ADLs: Minimal assistance Gait: Steady Ambulation Assist: Assistive Device: None Special Orthopedic Devices: Brace Current Level of Assistance for Self-Care/Mobility: Cognitive Status: Orientation: Orientation Assessment Oriented x 4 Level of Consciousness: Alert Characteristics of Speech: Clear Aspiration Risk: None Affect/Behavior: Appropriate, Calm, Cooperative Laboratory or Other Results This Visit (last charted value for your 07/01/2018 visit) Blood Bank 06/22/2018 9:57 AM ABO/Rh: B POS Antibody Screen: Negative [facility]SC Diagnostic Radiology 07/01/2018 12:10 PM XR Spine Cervical 2 or 3 Views: XR Spine Cervical 2 or 3 Views Measurements: Height: Weight: Blood Pressure: 135 mmHg / BMI: Respiratory: Respirations: Unlabored, Quiet Respiratory Symptoms: None Cardiovascular: Heart Sounds: Heart Rhythm: Regular Gastrointestinal: GI Symptoms: Bowel Sounds: Present Vital Signs: Temp Axillary: 36.5 degC Temp Temporal Artery: 36 degC Temp Oral: 36.6 degC Temp Rectal: Apical Heart Rate: Peripheral Pulse Rate: 81 bpm Heart Rate: 63 bpm Respiratory Rate: 14 br/min Diet Diet: Feeding Tolerance: Appetite: Good Harris Assessment: 22 Procedures Discectomy Cervical Anterior (Left) (07/01/2018) Immunizations influenza virus vaccine, inactivated (07/01/2018) HERE ARE THE MEDICATION CHANGES THAT OCCURRED DURING YOUR HOSPITAL STAY New Medications Printed Prescriptions baclofen (baclofen 10 mg oral tablet) 10 Milligram Oral (given by mouth) every 8 hours standard times. Refills: 0. Last Dose: _ dexamethasone (dexamethasone 4 mg oral tablet) 1 Tabs Oral (given by mouth) 3 times a day for 2 Days. Refills: 0. Last Dose: _ diazePAM (Valium 2 mg oral tablet) 1 Milligram Oral (given by mouth) every 8 hours for 5 Days. Refills: 0. Last Dose: _ sulfamethoxazole-trimeth oprim (Bactrim DS 800 mg-160 mg oral tablet) 1 Tabs Oral (given by mouth) 2 times a day. Refills: 0. Last Dose: _ traMADol (traMADol 50 mg oral tablet) 50 Milligram Oral (given by mouth) every 4 hours as needed pain for 7 Days. half to one tab po q4hr prn pain. Refills: 0. Last Dose: _ Medications That Have Not Changed Other Medications amitriptyline (amitriptyline 25 mg oral tablet) 1 Tabs Oral (given by mouth) once a day (at bedtime) as needed pain. Last Dose: _ lisinopril (lisinopril 10 mg oral tablet) 2 Tabs Oral (given by mouth) every day. take 1 tablet by mouth once daily. Last Dose: _ PROVIDED FOR YOU IS A LIST OF YOUR PATIENT?S CURRENT MEDICATIONS Printed Prescriptions baclofen (baclofen 10 mg oral tablet) 10 Milligram Oral (given by mouth) every 8 hours standard times. Refills: 0. dexamethasone (dexamethasone 4 mg oral tablet) 1 Tabs Oral (given by mouth) 3 times a day for 2 Days. Refills: 0. diazePAM (Valium 2 mg oral tablet) 1 Milligram Oral (given by mouth) every 8 hours for 5 Days. Refills: 0. sulfamethoxazole-trimeth oprim (Bactrim DS 800 mg-160 mg oral tablet) 1 Tabs Oral (given by mouth) 2 times a day. Refills: 0. traMADol (traMADol 50 mg oral tablet) 50 Milligram Oral (given by mouth) every 4 hours as needed pain for 7 Days. half to one tab po q4hr prn pain. Refills: 0. Other Medications amitriptyline (amitriptyline 25 mg oral tablet) 1 Tabs Oral (given by mouth) once a day (at bedtime) as needed pain. lisinopril (lisinopril 10 mg oral tablet) 2 Tabs Oral (given by mouth) every day. take 1 tablet by mouth once daily. Care Team Members: Attending Physician: Charanjit JOVEL MD, Ofelia Borges Consulting Physician: Referring Physician: Follow up: With: Address: When: Ofelia Donohue [address] [place] [id number] [phone] Business (1) Comments: As scheduled preoperatively-call [phone] to confirm appointment to be seen in the neurosurgery clinic approximately 3 weeks after surgery With: Address: When: Lexie Cannon MD [address] [place] [address] Business (1) Type Location Start Finish State Post Op Visit [facility] 07/22/2018 10:30:00 07/22/2018 11:00:00 Confirmed Normal [facility] Neurosurgery Progress Noteon 02-17-2019 Neurosurgery Progress Note Subjective Patient reports he feels considerably better Minimal neck pain, and what little he has is in the left trapezial angle No difficulty with eating or swallowing No chest pain or shortness of breath No radicular pain nor paresthesias Ambulating without difficulty Objective Vitals & Measurements T: 36.5 ?C (Axillary) T: 36.6 ?C (Oral) T: 36 ?C (Temporal Artery) HR: 63 (Monitored) RR: 14 BP: 135/84 SpO2: 92% HT: 185.42 cm WT: 119.8 kg DOSE WT: 118 kg BMI: 34.32 Additional Vitals Peripheral Pulse Rate: 81 bpm Lab Results Microbiology No qualifying data available. Diagnostic Results Diagnostic Radiology XR Spine Cervical 2 or 3 Views 07/01/18 17:16:18 Intraoperative fluoroscopic images of the C-spine on 07/01/2018Findings:4 limited intraoperative fluoroscopic [ ] obtained during cervical spine surgery done by Dr. Donohue . Total fluoro time for this procedure is 12 seconds. This dictation is for documentation only. Please refer to the OR report for details. Signed By: Sulaiman WAN, Trip Computed Tomography No qualifying data available. Ultrasound No qualifying data available. Magnetic Resonance Imaging No qualifying data available. Nuclear Medicine No qualifying data available. Physical Exam general: Comfortable and cooperative lungs: clear abdomen: soft, nontender, nondistended incision: Dressing removed by physician and no wound fullness, tracheal deviation, erythema or tenderness Neuro: mental status: awake, alert, appropriate with normal mental status exam cranial nerves: intract, no visual field deficit motor: 5/5 power all groups except triceps is 5 minus which is improved compared to before surgery gait: [] Medications Inpatient acetaminophen, 650 mg, Oral, q4hr, PRN baclofen, 10 mg, Oral, [id number] Times Bactrim DS 800 mg-160 mg oral tablet, 1 tabs, Oral, BID Cepacol Sore Throat 15 mg-3.6 mg mucous membrane lozenge, 1 lozenges, Oral, q1hr, PRN Colace, 100 mg, Oral, BID dexamethasone, 8 mg, 2 mL, IV Push, q6hr fentaNYL, 50 mcg, 1 mL, IV Push, q1hr, PRN hydrALAZINE, 10 mg, 0.5 mL, IV Push, q10min, PRN labetalol, 10 mg, 2 mL, IV Push, q10min, PRN magnesium hydroxide 8% oral suspension, 30 mL, Oral, TID multivitamin with minerals, 1 tabs, Oral, Daily Normal Saline Flush 0.9% injectable solution, 10 mL, IV Push, BID Normal Saline Flush 0.9% injectable solution, 10 mL, IV Push, As Indicated, PRN traMADol, 25 mg, Oral, q4hr, PRN traMADol, 50 mg, Oral, q4hr, PRN Valium, 1 mg, Oral, q8hr Vitamin C, 500 mg, Oral, q8hr Zofran, 4 mg, 2 mL, IV Push, q4hr, PRN Assessment/Plan 1. Cervical radiculopathy 2. DDD (degenerative disc disease), cervical 3. History of fusion of cervical spine Orders: benzocaine-menthol topical, 1 lozenges, Oral, Lozenge, q1hr, PRN sore throat, First Dose: 07/02/18 9:23:00 EST, Dispense From Location: [facility] dexamethasone, 8 mg, IV Push, Injection, q6hr, First Dose: 07/02/18 9:23:00 EST, Dispense From Location: Tusntxu-STL-6Z sulfamethoxazole-trimeth oprim, 1 tabs, Oral, Tab, BID for 3 days, First Dose: 07/02/18 21:00:00 EST, Stop Date: 07/05/18 20:59:00 EST, Dispense From Location: [id number]-TBB-6I, Prophylaxis- Pre/Post-Op traMADol, 50 mg, Oral, Tab, q4hr, PRN severe pain [7-10 on pain scale], First Dose: 07/02/18 9:23:00 EST, Dispense From Location: [place] traMADol, 25 mg, Oral, Tab, q4hr, PRN moderate pain [4-6 on pain scale], First Dose: 07/02/18 9:23:00 EST, Dispense From Location: [id number]-[id number]-[id number] EKG Postoperative day 2 status post anterior cervical discectomy C6 7 below a previous C5 6 anterior cervical discectomy Postoperative sinus tachycardia of unknown etiology has resolved Patient is comfortable and reveals no worrisome features Patient is ready for discharge to home and he is in agreement Instructions provided verbally and computer-generated education form Electronically signed by _ Charanjit JOVEL MD, Ofelia Borges 07/03/18 07:03 EST Normal [facility] Neurosurgery Progress Noteon 07-02-2018 Neurosurgery Progress Note Subjective Patient's main complaint this morning is that of headache. As it turns out, previous experiences with [place] have generated headache. No nausea or vomiting Notes odynophagia but no dysphagia and was able to eat his breakfast this morning without difficulty and no difficulty with fluids or saliva Patient has proved to be tachycardic this morning with low-grade temperature. EKG reveals sinus tachycardia. Patient denies shortness of breath, chest pain, pleurisy, diaphoresis nor does he have abdominal discomfort Urinating without difficulty Modest neck pain and no radicular pain. All paresthesias have been eliminated from right side. Notes persistent numbness on left fingertips which is chronic Objective Vitals & Measurements T: 36.5 ?C (Axillary) T: 37.6 ?C (Oral) T: 36 ?C (Temporal Artery) HR: 63 (Monitored) RR: 14 BP: 122/83 SpO2: 98% HT: 185.42 cm WT: 121.5 kg DOSE WT: 118 kg BMI: 34.32 Additional Vitals Peripheral Pulse Rate: 110 bpm High Lab Results Microbiology No qualifying data available. Diagnostic Results Diagnostic Radiology XR Spine Cervical 2 or 3 Views 07/01/18 17:16:18 Intraoperative fluoroscopic images of the C-spine on 07/01/2018Findings:4 limited intraoperative fluoroscopic [ ] obtained during cervical spine surgery done by Dr. Donohue . Total fluoro time for this procedure is 12 seconds. This dictation is for documentation only. Please refer to the OR report for details. Signed By: Sulaiman WAN, Trip Computed Tomography No qualifying data available. Ultrasound No qualifying data available. Magnetic Resonance Imaging No qualifying data available. Nuclear Medicine No qualifying data available. Physical Exam general: Comfortable cooperative with no distress; mucous membranes moist lungs: clear; incentive spirometer approximately 3000 mL-patient is educated and encouraged and improved to 3500 with oxygen saturations improving to 97-100% abdomen: soft, nontender, mildly distended incision: dressed, dry; nonswollen or full and midline trachea with normal vocal quality Neuro: mental status: awake, alert, appropriate with normal mental status exam cranial nerves: intract, no visual field deficit motor: 5/5 power all groups gait: [] Medications Inpatient acetaminophen, 650 mg, Oral, q4hr, PRN baclofen, 10 mg, Oral, [id number] Times Cepacol Sore Throat 15 mg-3.6 mg mucous membrane lozenge, 1 lozenges, Oral, q1hr, PRN Colace, 100 mg, Oral, BID dexamethasone, 8 mg, 2 mL, IV Push, q6hr Dulcolax Laxative, 10 mg, 1 supp, Rectal, Once fentaNYL, 50 mcg, 1 mL, IV Push, q1hr, PRN hydrALAZINE, 10 mg, 0.5 mL, IV Push, q10min, PRN labetalol, 10 mg, 2 mL, IV Push, q10min, PRN magnesium hydroxide 8% oral suspension, 30 mL, Oral, TID multivitamin with minerals, 1 tabs, Oral, Daily Normal Saline Flush 0.9% injectable solution, 10 mL, IV Push, BID Normal Saline Flush 0.9% injectable solution, 10 mL, IV Push, As Indicated, PRN traMADol, 25 mg, Oral, q4hr, PRN traMADol, 50 mg, Oral, q4hr, PRN Valium, 1 mg, Oral, q8hr vancomycin Vitamin C, 500 mg, Oral, q8hr Zofran, 4 mg, 2 mL, IV Push, q4hr, PRN Assessment/Plan 1. Cervical radiculopathy 2. DDD (degenerative disc disease), cervical 3. History of fusion of cervical spine Orders: acetaminophen, 650 mg, Oral, Tab, q4hr, PRN mild pain [1-3 on pain scale], First Dose: 07/01/18 14:07:00 EST, Dispense From Location: [address] ascorbic acid, 500 mg, Oral, Tab-Chew, q8hr, First Dose: 07/01/18 15:00:00 EST, Dispense From Location: [facility] baclofen, 10 mg, Oral, Tab, [id number]-Vjvyvuap Times, First Dose: 07/01/18 22:00:00 EST, Dispense From Location: [facility] benzocaine-menthol topical, 1 lozenges, Oral, Lozenge, q1hr, PRN sore throat, First Dose: 07/02/18 9:23:00 EST, Dispense From Location: [facility] bisacodyl, 10 mg, Rectal, Supp, Once, First Dose: 07/02/18 9:23:00 EST, Stop Date: 07/02/18 9:23:00 EST, Dispense From Location: [place] dexamethasone, 8 mg, IV Push, Injection, q6hr, First Dose: 07/02/18 9:23:00 EST, Dispense From Location: [facility] diazePAM, 1 mg, Oral, Tab, q8hr, First Dose: 07/01/18 15:00:00 EST, Dispense From Location: [place] docusate, 100 mg, Oral, Cap, BID, First Dose: 07/01/18 21:00:00 EST, Dispense From Location: [facility] fentaNYL, 50 mcg, IV Push, Injection, q1hr, PRN breakthrough pain, First Dose: 07/01/18 14:07:00 EST, Dispense From Location: [facility] hydrALAZINE, 10 mg, IV Push, Injection, q10min, PRN hypertension, First Dose: 07/01/18 14:07:00 EST, Dispense From Location: [facility] labetalol, 10 mg, IV Push, Injection, q10min, PRN hypertension, First Dose: 07/01/18 14:07:00 EST, Dispense From Location: [place] magnesium hydroxide, 30 mL, Oral, Susp, TID, First Dose: 07/01/18 22:00:00 EST, Dispense From Location: [facility] multivitamin with minerals, 1 tabs, Oral, Tab, Daily, First Dose: 07/02/18 9:00:00 EST, Dispense From Location: Pspvnbo-WNH-9G ondansetron, 4 mg, IV Push, Injection, q4hr, PRN nausea, First Dose: 07/01/18 14:07:00 EST, Dispense From Location: [facility]-MHR-3I sodium chloride, 10 mL, IV Push, Injection, BID, First Dose: 07/01/18 21:00:00 EST, Dispense From Location: [facility]ow-YAD-0X sodium chloride, 10 mL, IV Push, Injection, As Indicated, PRN flush, First Dose: 07/01/18 14:07:00 EST, Dispense From Location: Fibikpc-XAX-0A traMADol, 50 mg, Oral, Tab, q4hr, PRN severe pain [7-10 on pain scale], First Dose: 07/02/18 9:23:00 EST, Dispense From Location: Lvvvudo-BHH-7H traMADol, 25 mg, Oral, Tab, q4hr, PRN moderate pain [4-6 on pain scale], First Dose: 07/02/18 9:23:00 EST, Dispense From Location: Docqiwp-SQQ-7A vancomycin, 1,500 mg, IV Piggyback, q12hr for 3 doses, infuse over 1.5 hr, First Dose: 07/01/18 15:00:00 EST, Stop Date: 07/03/18 2:59:00 EST, Dispense From Location: [facility], Prophylaxis- Pre/Post-Op Ambulate EKG Elevate Head of Bed Incentive Spirometry Nursing to Encourage Intake and Output Mechanical Compression Device Neurological Checks Notify Provider Notify Provider Notify Provider Oxygen Therapy Peripheral IV Insert and Maintain Pulse Oximetry Continuous Regular Diet Resuscitation Status Treatment Instruction Vital Signs Weight Postoperative day 1 status post removal of C5 6 anterior cervical plate with expiration of fusion and C6 7 anterior cervical discectomy with interbody fusion and instrumentation Patient appears to be doing clinically well with elimination of preoperative radiculopathy and motor weakness, but does demonstrate sinus tachycardia of uncertain etiology-patient does demonstrate low-grade fever and therefore this may represent atelectasis or narcotic ileus. The patient has no chest symptoms such as pleurisy, pain, shortness of breath to suggest underlying pulmonary embolism. Patient does have headache which is likely narcotic related as he had no CSF leak at time of surgery. Convert to tramadol Odynophagia secondary to extensive retropharyngeal and retroesophageal dissection-initiate brief pulse of dexamethasone for pain control mobilization with nursing assistance Hep-Lock oral pain regimen-convert to tramadol Continue DVT prophylaxis through external devices-patient not eligible for chemoprophylaxis secondary to risk of bleeding Complete antibiotics for Scip protocol Vitamins and oxygen for wound healing Bowel program for postoperative narcotic ileus Incentive spirometry educated and encouraged for postoperative atelectasis Patient will not be discharged today secondary to tachycardia and low-grade fever. Aggressive mobilization, incentive spirometry and bowel program. If tachycardia and fever resolve by tomorrow, discharge tomorrow morning Electronically signed by _ Ofelia Donohue III, MD 07/02/18 09:32 EST Normal [facility] Neurosurgery Progress Noteon 07-01-2018 Neurosurgery Progress Note Objective Vitals & Measurements T: 36.5 ?C (Axillary) T: 36 ?C (Temporal Artery) HR: 63 (Monitored) RR: 20 BP: 113/78 SpO2: 97% HT: 185.42 cm WT: 116.57 kg DOSE WT: 116.57 kg BMI: 33.91 Additional Vitals Peripheral Pulse Rate: 82 bpm Lab Results Microbiology No qualifying data available. Diagnostic Results Diagnostic Radiology No qualifying data available. Computed Tomography No qualifying data available. Ultrasound No qualifying data available. Magnetic Resonance Imaging No qualifying data available. Nuclear Medicine No qualifying data available. Medications Inpatient acetaminophen, 650 mg, Oral, q4hr, PRN bacitracin IV additive + Sodium Chloride 0.9% Irrigation 1,000 mL baclofen, 10 mg, Oral, h3rd-Btwhgdjr Times Colace, 100 mg, Oral, BID fentaNYL, 50 mcg, 1 mL, IV Push, q1hr, PRN hydrALAZINE, 10 mg, 0.5 mL, IV Push, q10min, PRN labetalol, 10 mg, 2 mL, IV Push, q10min, PRN magnesium hydroxide 8% oral suspension, 30 mL, Oral, TID multivitamin with minerals, 1 tabs, Oral, Daily [place] 10 mg-325 mg oral tablet, 1 tabs, Oral, q4hr, PRN [place] 5 mg-325 mg oral tablet, 1 tabs, Oral, q4hr, PRN Normal Saline Flush 0.9% injectable solution, 10 mL, IV Push, BID Normal Saline Flush 0.9% injectable solution, 10 mL, IV Push, As Indicated, PRN Valium, 1 mg, Oral, q8hr vancomycin Vitamin C, 500 mg, Oral, q8hr Zofran, 4 mg, 2 mL, IV Push, q4hr, PRN Assessment/Plan 1. Cervical radiculopathy 2. DDD (degenerative disc disease), cervical 3. History of fusion of cervical spine Orders: acetaminophen, 650 mg, Oral, Tab, q4hr, PRN mild pain [1-3 on pain scale], First Dose: 07/01/18 14:07:00 EST, Dispense From Location: Avxdcrp-CNM-7K ascorbic acid, 500 mg, Oral, Tab-Chew, q8hr, First Dose: 07/01/18 15:00:00 EST, Dispense From Location: [facility] bacitracin + sodium chloride 1,000 mL, 50,000 units, IRR, Once, infuse over 1 minutes, First Dose: 07/01/18 8:12:00 EST, Stop Date: 07/01/18 8:12:00 EST, STAT, Dispense From Location: [facility] baclofen, 10 mg, Oral, Tab, h6hi-Hzataopj Times, First Dose: 07/01/18 22:00:00 EST, Dispense From Location: [facility] diazePAM, 1 mg, Oral, Tab, q8hr, First Dose: 07/01/18 15:00:00 EST, Dispense From Location: [facility] docusate, 100 mg, Oral, Cap, BID, First Dose: 07/01/18 21:00:00 EST, Dispense From Location: [facility] fentaNYL, 50 mcg, IV Push, Injection, q1hr, PRN breakthrough pain, First Dose: 07/01/18 14:07:00 EST, Dispense From Location: Lcygadk-DEY-0V hydrALAZINE, 10 mg, IV Push, Injection, q10min, PRN hypertension, First Dose: 07/01/18 14:07:00 EST, Dispense From Location: Zjdwnxq-DTH-6V hydrocodone-acetaminophe n, 1 tabs, Oral, Tab, q4hr, PRN moderate pain [4-6 on pain scale], First Dose: 07/01/18 14:07:00 EST, Dispense From Location: Tpaohxw-TFH-6P hydrocodone-acetaminophe n, 1 tabs, Oral, Tab, q4hr, PRN severe pain [7-10 on pain scale], First Dose: 07/01/18 14:07:00 EST, Dispense From Location: Xwuptom-XZU-8Z labetalol, 10 mg, IV Push, Injection, q10min, PRN hypertension, First Dose: 07/01/18 14:07:00 EST, Dispense From Location: [facility] magnesium hydroxide, 30 mL, Oral, Susp, TID, First Dose: 07/01/18 22:00:00 EST, Dispense From Location: [facility] multivitamin with minerals, 1 tabs, Oral, Tab, Daily, First Dose: 07/02/18 9:00:00 EST, Dispense From Location: [facility] ondansetron, 4 mg, IV Push, Injection, q4hr, PRN nausea, First Dose: 07/01/18 14:07:00 EST, Dispense From Location: [facility] sodium chloride, 10 mL, IV Push, Injection, BID, First Dose: 07/01/18 21:00:00 EST, Dispense From Location: Mgtezmy-FHL-4G sodium chloride, 10 mL, IV Push, Injection, As Indicated, PRN flush, First Dose: 07/01/18 14:07:00 EST, Dispense From Location: [facility] vancomycin, 1,500 mg, IV Piggyback, Soln-IV, q12hr for 3 doses, infuse over 1.5 hr, First Dose: 07/01/18 15:00:00 EST, Stop Date: 07/03/18 2:59:00 EST, Dispense From Location: [facility], Prophylaxis- Pre/Post-Op Ambulate Elevate Head of Bed Incentive Spirometry Nursing to Encourage Incentive Spirometry Respiratory to Instruct Intake and Output Mechanical Compression Device Neurological Checks Notify Provider Notify Provider Notify Provider Oxygen Therapy Peripheral IV Insert and Maintain Place in Observation Pulse Oximetry Continuous Regular Diet Resuscitation Status Treatment Instruction Vital Signs Weight XR Spine Cervical 2 or 3 Views Patient notes some neck pain which he states is improving No radicular pain Minimal numbness at the tips of his fingers which is pre-existing Patient is drinking water without difficulty No shortness of breath or chest pain Educated on incentive spirometer and can accomplish 3500 mL Normal vocal quality No wound fullness or tricky deviation Status post exploration of C5 6 fusion with removal of C5 6 hardware; C6 7 anterior cervical discectomy with interbody fusion and instrumentation Patient appears to be doing well Ambulate Diet Incentive spirometry Anticipate discharged from the morning Electronically signed by _ Charanjit JOVEL MD, Ofelia Borges 07/01/18 14:14 EST Normal [facility] Operative Reporton 9 Operative Report Indication for Surge ry Intractable right C7 radiculopathy secondary to disc protrusion right C6 7 with motor neuropathy; 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 as a result of previous C5 6 anterior cervical discectomy Preoperative Diagnosis Same Postoperative Diagnosis Same Operation Removal Of C5 6 [place] elite plate and exploration of fusion and confirmation of solid arthrodesis at C5 6; C6 7 anterior cervical discectomy with interbody fusion using L ASR Medtronic cortical cancellus bone allograft 9 mm in height; osteosynthetic plating C6 7 with Medtronic [place] elite plate with 17 mm screws Surgeon(s) Ofelia Donohue Agriculture Laboratory Technician Brandy RODRIGUES Anesthesia General anesthetic via endotracheal tube Estimated Blood Loss 25 mL or less Urine Output 400 mL Findings Stable SSEP monitoring and MEP monitoring and no EMG trains Specimen(s) None-grossly normal degenerated disc Complications None Technique History: Very pleasant 57-year-old gentleman who is a remote history of C5 6 anterocervical discectomy at outside location with good outcome. Patient has now presented to the neurosurgery clinic with acute right C7 radiculopathy with motor neuropathy secondary to interannular disc herniation leading to paramedian right central canal compromise/stenosis as well as severe foraminal stenosis. In light of his exam and findings including mild coronal balance secondary to scoliosis, it is felt that surgical intervention would be most appropriate. The patient is in agreement and wish to proceed. He is offered disc arthroplasty if it appears appropriate at the time of surgery he is also prepared for interbody fusion with plating. He is made aware of the risk of the procedure includingincluding infection, bleeding, CSF leak, neurologic injury, neuropathic pain syndrome, peridural fibrosis, failure for improvement, incomplete benefit, new neurologic deficit, spinal instability, coma, , paralysis, deep venous thrombosis, pulmonary embolism, adjacent segment disease, hardware failure or pullout, ischemic optic neuropathy with permanent blindness, reoperation either delayed or acute, great vessel injury, visceral column injury, cranial neuropathy as well as chronic dysphagia. Patient wishes to proceed and written consent is obtained Procedure: Patient is brought into the operating room and general anesthetic induced via atraumatically placed endotracheal tube. Venous access is secured. The patient has electrophysiologic monitoring needles placed. The patient then has a roll placed between the shoulder blades and will head and neck are allowed to fall into gentle extension and placed on a Silastic doughnut. This position was tested preoperatively and found to be tolerated without new neurologic complaints or deficits. The arms are tucked at the side. Fluoroscopy is used to localize the C6 7 as well as the anterior cervical plate at C5 6 interspace and a proposed skin incision is described on the left side of the neck in a curvilinear fashion following Watson's lines directly above the previous incision and at the epicenter of the cephalad-caudad extent of expected dissection. This is approximately from 1 cm off midline laterally for another 5-6 cm. The area is then prepped and draped in usual fashion. After the appropriate side, site, patient identified and a timeout maneuver is performed, a full-thickness skin incision is carried down to the platysma using 10 bladed knife and monopolar cautery. Subcutaneous tissues are elevated sharply and the platysma is open and in a longitudinal fashion following its fibers so as to discern the interfascial plane between the larynx and the sternocleidomastoid muscle. Fair amount of fibrotic reaction is a identified requires careful dissection to isolate neovascularization that is cauterized with bipolar cautery. The omohyoid is identified and retracted. Further dissection medial to the carotid sheath identifies the esophagus and retropharyngeal space where moderate amount of fibrotic reaction is encountered in his carefully dissected to ensure no injury to the retropharyngeal wall for esophagus and the fibrotic capsule which was then opened with Metzenbaum scissors. The C6 7 disc space is able to be palpated as is the anterior cervical plate and longus coli identified. Longus coli was elevated using monopolar cautery and self-retaining retractor was put in place. Fluoroscopy is confirmatory for level. At this point, the fixation screws from the plate are liberated and removed and the plate easily removes. This allows for further identification of anterior osteophytosis at C6 7. Then anterior osteophyte is removed using [place] rongeur to have the vertebral body edges at the disc space flush with the remainder of the vertebral body. Once performed, Barrett distraction pins are placed in the vertebral body of C 6 and C 7 12 mm in length. Axial distraction is applied and then using a combination of curettes as well as high-speed electric drill, the disc undergoes radical discectomy from uncus to uncus bilaterally and drilled down to the posterior osteophytosis which is removed using the high-speed drill carefully under loupe magnification and headlamp. Then, angled curettes are able to elevate the posterior longitudinal ligament and exuberant and thickened fibrotic reaction and annulus/posterior longitudinal ligament is able to be removed in a piecemeal fashion using 2 mm Kerrison punch so as to expose the epidural space. This allows for undercutting of the vertebral body of C 6 and C 7 and removal of the entirety of the thickened PLL and annulus and this is carried from the pedicle of C 7 bilaterally with a bit more resection on the right side to identify the C7 nerve root and lateral aspect of the pedicle to ensure complete decompression of the root which is achieved. The foramen are found to be patent between axial distraction and removal of lateral osteophytosis by virtue of right angle hook. Bleeding is controlled using FloSeal and cottonoids. Hemostatic agents are removed and the cortical endplates of C 6 and C 7 are lightly abraded using curet. The disc space is somewhat fishmouth any appears inordinately large for disc arthroplasty but a trial is inserted. It does appear to small for appropriate deployment and furthermore, the fishmouthing prevents anterior radial cut to be appropriately applied, thereby making the use of disc arthroplasty and appropriate. Then trial spacer was used to identify appropriate interbody graft size which is found to be 9 mm. While this is opened and soaked in antibiotic solution, depth is measured using depth gauge. The interbody cortical cancellus bone is then impacted into place and slightly countersunk without incident and excellent fit. Barrett distraction pins are removed and drill holes filled with FloSeal. An appropriate size [place] elite plate is chosen and placed in the midline and pilot manager holes drilled. Each hole is tapped and then 17 mm screws placed after drilling using variable angle guide are placed at C 6 and fixed angle screws using the fixed angle guide, 17 mm in size, are placed at C 7. Locking mechanism was engaged at each level. The wound was then carefully explored and the retropharyngeal wall and esophagus is found to be without any breeches or injuries. Small capillary bleeding is controlled using bipolar cautery followed by vigorous irrigation of the wound using antibiotic solution. A single arterial bleeder from the medial edge of the left-sided longus coli was identified and is cauterized with effective hemostasis. Then the platysma is reapproximated using 3-0 Vicryl after self-retaining retractors removed and wound undergoes final exploration. Platysma was reapproximated using 3-0 Vicryl in interrupted fashion. Subcutaneous used tissues are closed using 3-0 Vicryl in inverted interrupted fashion followed by Mastisol and Steri-Strips. Sterile dressings applied and patient is placed into a thermoplastic external orthosis. The patient is then extubated and taken recover from monitoring. No known complications surgery This surgical procedure was assisted by my physician?s operator/assistant foreman. Her presence was needed throughout the case for manipulation and positioning the surgical arm as well as positioning the surgical instruments as well as primarily assisting me through procedure. Due to the complexity of condition, the skill set of an neurosurgical physician operator/assistant foreman was needed throughout the case. During the surgical case, the surgical services coordinator was working the back table and was not available for assistance. Tourniquet Time None Sponge/Needle Count Per nursing correct Fluid Count 1600 mL crystalloid Electronically signed by _ Charanjit JOVEL MD, Ofelia Jony 07/01/18 12:54 EST Normal [facility] Progress Note-Nurseon 2018 Progress Note-Nurse patient c/o having a hard time swallowing and feels swelling more than last surgery. He stated is has not gotten worse since surgery. Patient encouraged to drink cold liquids and icees and ice creamfor supper. _ Tooboo, Cat Normal [facility] XR Spine Cervical 2 or 3 Vie wson 07-01-2018 XR Spine Cervical 2 or 3 Views Intraoperative fluoroscopic images of the C-spine on 07/01/2018 Findings: 4 limited intraoperative fluoroscopic [ ] obtained during cervical spine surgery done by Dr. Donohue . Total fluoro time for this procedure is 12 seconds. This dictation is for documentation only. Please refer to the OR report for details. Final Dictated by: Trip Hilario MD Dictated DT/TM: 07/01/2018 5:16 pm Signed by: Trip Hilario MD Signed (Electronic Signature): 07/01/2018 5:17 pm (If Report Is Signed, Electronically Signed in Other Vendor System) Normal [facility] .UA Microscp Aon 06-22-2018 UA Mucus Present Abnormal Absent [facility] Comment on above: Performed By: #### I STATCREA #### [place] [address] UA RBC Quant 0 /HPF Normal 0-5 [facility] Comment on above: Performed By: #### I STATCREA #### [place] [id number] UA WBC Quant 0 /HPF Normal 0-5 [facility] Comment on above: Performed By: #### I STATCREA #### [place] [id number] .eGFRon 06-22-2018 eGFR AA >60 Normal >=60 [facility] Comment on above: Result Comment: Resu lt = 0-14.9 mL/min/1.73 m2 Kidney failure or Dialysis Result = 15-29 mL/min/1.73 m2 Severe decrease in GFR Result = 30-59 mL/min/1.73 m2 Moderate decrease in GFR Result >= 60 mL/min/1.73 m2 Normal or increased GFR Performed By: #### I STATCREA #### [place] [id number] eGFR Non-AA >60 Normal >=60 [facility] Comment on above: Result Comment: Resu lt = 0-14.9 mL/min/1.73 m2 Kidney failure or Dialysis Result = 15-29 mL/min/1.73 m2 Severe decrease in GFR Result = 30-59 mL/min/1.73 m2 Moderate decrease in GFR Result >= 60 mL/min/1.73 m2 Normal or increased GFR Chronic kidney disease is defined as either kidney damage or GFR < 60 mL/min/1.73 m2 for >= 3 months. Kidney damage is defined as pathologic abnormalities or markers of damage including abnormalities in blood or urine tests or imaging studies. This GFR is NOT used for medication dosing. Performed By: #### I STATCREA #### [place] [id number] ABO/Rhon 06-22-2018 ABO/Rh DCon: 0 ABO/Rh: B POS Normal [facility] Comment on above: Performed By: #### I STATCREA #### [address] [address] ABSC Autoon 06-22-2018 ABSC Auto Negative Normal [facility] Comment on above: Performed By: #### I STATCREA #### [address] [address] CBC w/ Diffon 06-22-2018 Erythrocyte distribution width (RBC) [Ratio] 13.3 % Normal 11.6-14.8 [facility] Comment on above: Performed By: #### I STATCREA #### [address] [address] Hematocrit (Bld) [Volume fraction] 45.9 % Normal 41.0-53.0 [facility] Comment on above: Performed By: #### I STATCREA #### [address] [address] Hemoglobin (Bld) [Mass/Vol] 15.7 g/dL Normal 13.5-17.5 [facility] Comment on above: Performed By: #### I STATCREA #### [address] [address] MCH (RBC) [Entitic mass] 31.2 pg Normal 27.0-35.0 [facility] Comment on above: Performed By: #### I STATCREA #### [address] [address] MCHC (RBC) [Mass/Vol] 34.3 % Normal 31.0-37.0 [facility] Comment on above: Performed By: #### I STATCREA #### [address] [address] MCV (RBC) [Entitic vol] 91.0 fL Normal 80.0-100.0 [facility] Comment on above: Performed By: #### I STATCREA #### [address] [address] Platelet mean volume (Bld) [Entitic vol] 10.5 fL Normal 6.7-10.6 [facility] Comment on above: Performed By: #### I STATCREA #### [address] [address] Platelets (Bld) [#/Vol] 211 x10*3/mcL Normal 150-350 [facility] Comment on above: Performed By: #### I STATCREA #### [address] [address] RBC (Bld) [#/Vol] 5.04 x10*6/mcL Normal 4.30-5.80 [facility] Comment on above: Performed By: #### I STATCREA #### [address] [address] WBC (Bld) [#/Vol] 6.7 x10*3/mcL Normal 4.5-11.0 [facility] Comment on above: Performed By: #### I STATCREA #### [address] [address] CMPon 06-22-2018 Albumin [Mass/Vol] 3.9 g/dL Normal 3.2-4.9 [facility] Comment on above: Result Comment: [facility] Laboratory updated the methodology used for albumin testing on 12/22/17. Albumin measurement was performed using a bromcresol purple dye-binding assay. Performed By: #### I STATCREA #### [address] [address] Albumin/Globulin [Mass ratio] 1.3 {ratio} Normal 1.1-2.2 [facility] Comment on above: Performed By: #### I STATCREA #### [address] [address] Alk Phos 101 IU/L High 32-91 [facility] Comment on above: Performed By: #### I STATCREA #### [address] [address] ALT [Catalytic activity/Vol] 18 U/L Normal 17-63 [facility] Comment on above: Performed By: #### I STATCREA #### [address] [address] Anion gap [Moles/Vol] 12 mmol/L Normal 7-17 [facility] Comment on above: Performed By: #### I STATCREA #### [address] [address] AST [Catalytic activity/Vol] 18 U/L Normal 15-41 [facility] Comment on above: Performed By: #### I STATCREA #### [address] [address] Bili Total 0.7 mg/dL Normal 0.3-1.2 [facility] Comment on above: Performed By: #### I STATCREA #### [address] [address] Calcium [Mass/Vol] 8.9 mg/dL Normal 8.5-10.3 [facility] Comment on above: Performed By: #### I STATCREA #### [address] [address] Chloride [Moles/Vol] 102 mmol/L Normal 98-110 [facility] Comment on above: Performed By: #### I STATCREA #### [address] [address] CO2 [Moles/Vol] 27 mmol/L Normal 22-32 [facility] Comment on above: Performed By: #### I STATCREA #### [address] [address] Creatinine [Mass/Vol] 1.07 mg/dL Normal 0.61-1.24 [facility] Comment on above: Performed By: #### I STATCREA #### [address] [address] Glucose [Mass/Vol] 105 mg/dL Normal 74-118 [facility] Comment on above: Performed By: #### I STATCREA #### [address] [address] Potassium [Moles/Vol] 4.2 mmol/L Normal 3.4-4.8 [facility] Comment on above: Performed By: #### I STATCREA #### [address] [address] Protein [Mass/Vol] 7.0 g/dL Normal 6.5-8.1 [facility] Comment on above: Performed By: #### I STATCREA #### [address] [address] Sodium [Moles/Vol] 137 mmol/L Normal 133-142 [facility] Comment on above: Performed By: #### I STATCREA #### [address] [address] Urea nitrogen [Mass/Vol] 11 mg/dL Normal 8-26 [facility] Comment on above: Performed By: #### I STATCREA #### [address] [address] Urea nitrogen/Creatinin e [Mass ratio] 10.3 mg/mg Normal 10.0-20.0 [facility] Comment on above: Performed By: #### I STATCREA #### [address] [address] Diff Autoon 06-22-2018 Baso Absolute 0.0 x10*3/mcL Normal 0.0-0.2 [facility] Comment on above: Performed By: #### I STATCREA #### [address] [address] Basophils/100 WBC (Bld) 0.5 % Normal 0.0-1.2 [facility] Comment on above: Performed By: #### I STATCREA #### [address] [address] Eos Absolute 0.2 x10*3/mcL Normal 0.0-0.4 [facility] Comment on above: Performed By: #### I STATCREA #### [address] [address] Eosinophils/100 WBC (Bld) 3.1 % Normal 0.0-6.1 [facility] Comment on above: Performed By: #### I STATCREA #### [address] [address] Lymphocytes (Bld) [#/Vol] 1.9 x10*3/mcL Normal 1.0-4.8 [facility] Comment on above: Performed By: #### I STATCREA #### [address] [address] Lymphocytes/100 WBC (Bld) 27.7 % Normal 27.2-40.8 [facility] Comment on above: Performed By: #### I STATCREA #### [address] [address] [place] Absolute 0.5 x10*3/mcL Normal 0.3-1.1 [facility] Comment on above: Performed By: #### I STATCREA #### [address] [address] Monocytes/100 WBC (Bld) 7.9 % Normal 4.7-13.9 [facility] Comment on above: Performed By: #### I STATCREA #### [address] [address] Neutro Absolute 4.1 x10*3/mcL Normal 1.8-7.7 [facility] Comment on above: Performed By: #### I STATCREA #### [address] [address] Neutro Auto 60.8 % Normal 47.2-70.8 [facility] Comment on above: Performed By: #### I STATCREA #### [address] [address] PTon 06-22-2018 INR Coag (PPP) [Relative time] 1.0 {INR} Normal <=3.5 [facility] Comment on above: Result Comment: INR has no normal range. INR Therapeutic range is: 2.0-3.0 (AF, CVA, TIAs, DVT prophylaxis, acute DVT) 2.5-3.5 [facility]oli[facility] Performed By: #### I STATCREA #### [address] [address] PT Coag (PPP) [Time] 10.0 s Normal 9.1-11.6 [facility] Comment on above: Performed By: #### I STATCREA #### [address] [address] PTTon 06-22-2018 aPTT Coag (Bld) [Time] 23.8 s Normal 19.2-29.7 [facility] Comment on above: Performed By: #### I STATCREA #### [address] [place] [address] UA w Culture if Indon 2018 Color (U) Yellow Normal [facility] Comment on above: Performed By: #### U CI #### [address] [address] Glucose (U) [Mass/Vol] Negative Normal Negative [facility] Comment on above: Performed By: #### U CI #### [address], [place] [address] Ketones Ql (U) Negative Normal Negative [facility] Comment on above: Performed By: #### U CI #### [address] [place] [address] UA Blood Negative Normal Negative [facility] Comment on above: Performed By: #### U CI #### [address] [place] [address] UA Clarity Clear Normal [facility] Comment on above: Performed By: #### U CI #### [address] [place] [address] UA Leukocyte Esterase Negative Normal Negative [facility] Comment on above: Performed By: #### U CI #### [address] [place] [address] UA Nitrite Negative Normal Negative [facility] Comment on above: Performed By: #### U CI #### [address] [place] [address] UA pH 6.0 Normal 4.5 - 7.8 [facility] Comment on above: Performed By: #### U CI #### [address] [place] [address] UA Protein Negative Normal Negative [facility] Comment on above: Performed By: #### U CI #### [address] [place] [address] UA Source Clean Catch Normal [facility] Comment on above: Performed By: #### U CI #### [address] [place] [address] UA Spec Grav 1.017 Normal 1.003-1.035 [facility] Comment on above: Performed By: #### U CI #### [address] [place] [address] UA Urobilinogen 0.2 mg/dL Normal 0.2 - 1.0 [facility] Comment on above: Performed By: #### U CI #### [address] [address] Urobilinogen Qn (U) Negative Normal Negative [facility] Comment on above: Performed By: #### U CI #### [address] [address] Neurosurgery Office/Clinic N tr 06-09-2018 Neurosurgery Office/Clinic Note Chief Complaint PATIENT STATES NECK Physical Exam Vitals & Measurements BP: 140/86 HT: 185 cm WT: 118.9 kg DOSE WT: 118.9 kg BMI: 34.74 Additional Vitals Body Mass Index Measured: 34.74 kg/m2 BP Position/Location: Sitting, Left arm Peripheral Pulse Rate: 104 bpm High Assessment/Plan 1. Cervical radiculopathy 2. History of fusion of cervical spine 3. DDD (degenerative disc disease), cervical Patient with history of C5 6 anterocervical discectomy with good outcome 3 years ago who now has 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. He has isolated cervical radicular syndrome that has resisted conservative measures including selective nerve root block. Mild triceps weakness is seen and a selective nerve root block on that provided 1 week of relief. He is not interested in definitive intervention and his imaging would suggest that extension of fusion would be completely acceptable and appropriate but that a disc arthroplasty would also be a reasonable attempt to avoid adjacent segment disease. He is educated that with his slight scoliotic deformity that it may asymmetrically load the device leading to either erosion or failure of device requiring revision surgery. I have noted that I have no significant experience with attempting this device in the face of mild scoliotic deformity but given his relative youth, osteoporosis is not anticipated. The patient is made aware of the surgical approach via left side with some slight increased risk of injury to vital structures from previous surgery/fibrotic reaction. He is made aware of the risk of procedure including infection, bleeding, neurologic injury, quadriplegia, great vessel injury, visceral column injury, cranial neuropathy, pseudoarthrosis, implant failure or ejection, adjacent segment disease, pseudoarthrosis, incomplete benefit or no benefit, chronic neck pain, CSF leak. He acknowledges and after a lengthy discussion, he wishes to proceed with disc arthroplasty and I believe this is reasonable given the relative mildness of his scoliotic curvature. This surgeon personally met with the patient had lengthy discussion with him and perform surgery consent with the patient-all questions answered to her satisfaction Problem List/Past Medical History Ongoing Cervical radiculopathy DDD (degenerative disc disease), cervical History of fusion of cervical spine HTN - Hypertension Hyperlipidemia Neck pain JUAN C (obstructive sleep apnea) Historical No qualifying data Procedure/Surgical History Appendectomy CERVICAL FUSION Medications amitriptyline 25 mg oral tablet, 25 mg, 1 tabs, Oral, HS (at bedtime), PRN lisinopril 10 mg oral tablet Allergies Keflex (unknown) Social History Alcohol Current Substance Abuse Denies All Tobacco Former smoker, quit more than 30 days ago Use:. Family History Breast cancer: Mother and Sibling. Diabetes mellitus: Father, Grandfather (P) and Sibling. Fibromyalgia: Mother. Malignant tumor of lung: Grandfather (M). Stroke: Mother, Father, Grandmother (M) and Grandmother (P). Electronically signed by _ Charanjit JOVEL MD, Ofelia Borges 06/09/18 17:04 EST Normal [facility] Neurosurgery Office/Clinic Note Chief Complaint PATIENT STATES NECK Review of Systems Constitutional: [No fevers, chills, sweats] Eye: [No recent visual problems] ENMT: [No ear pain, nasal congestion, sore throat] Respiratory: [No shortness of breath, cough] Cardiovascular: [No Chest pain, palpitations, syncope] Gastrointestinal: [No nausea, vomiting, diarrhea] Genitourinary: [No hematuria] Physical Exam Vitals & Measurements BP: 140/86 HT: 185 cm WT: 118.9 kg DOSE WT: 118.9 kg BMI: 34.74 Additional Vitals Body Mass Index Measured: 34.74 kg/m2 BP Position/Location: Sitting, Left arm Peripheral Pulse Rate: 104 bpm High Assessment/Plan 1. Cervical radiculopathy 2. History of fusion of cervical spine 3. DDD (degenerative disc disease), cervical Physician Comments Patient is a pleasant 57-year-old right-handed male with a history of hypertension and previous C5 6 ACDF (op notes reviewed with utilization of [place] plate) performed in [address] Ortiz in [place], [place], who presents to the outpatient neurosurgical clinic today for follow up and surgical discussion on behalf of complaints of neck pain with right greater than left upper extremity radiculopathy. 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 He states he did well following with resolution in pain and return of normal left upper extremity motor strength. He states he continued to do well until the onset of his current complaints approximately 7-8 months ago after torquing his neck getting into a car. He states progressive worsening of symptoms since onset. Patient describes right-sided cervicalgia with radiation into the right medial scapular border, right tricep, dorsum of the right forearm, and right pointer finger in primarily a C7 distribution. He describes his pain as burning and notes associated numbness and paresthesias. Patient states his pain syndrome is constant, but is worse with extension of the neck. He states at times, he is forced to raise his right arm over his head in order to alleviate symptoms. Patient reports the onset of much milder similar symptoms into the left upper extremity approximately 6 weeks ago without precipitating injury. Patient does sense a subjective sense of weakness in his right upper extremity without true motor loss. He denies decreased dexterity or gait disturbances/imbalance. He denies thoracic or lumbar pain. He denies lower extremity radicular pain, numbness, paresthesias, or weakness. He denies bowel/bladder incontinence or saddle paresthesias. Patient currently rates his pain at 4-8/10 on a standard pain scale. He states it is interrupting his sleep and activity level/function. Patient states that his symptoms have been refractory to attempts at health care technician, acupuncture, and decompressive therapies. In addition, he has established with a pain brokerage manager and has underwent various injection modalities including right C5 and C6 selective nerve root blocks 11/2017 and 12/2017, as well as more recent C7-T1 interlaminar LIZZETTE 02/14/18 without benefit. Since time of last office visit, he underwent a right C7 selective nerve root block on 06/03/18 with significant transient benefit for 1-2 days with subsequent symptom return. Patient denies formal physical therapy. Of note, patient states that his symptoms prompted him to visit with an alternate neurosurgeon (Dr. Galan in [facility]) 02/2018. He states that no formal surgical recommendation was given, however there was postulation regarding the possibility of a C6 7 artificial disc. Patient states that he was not pleased with the care he received and has chosen to establish for a second opinion in our neurosurgical clinic. MRI of the cervical spine from 05/19/18 reveals a C5 6 ACDF with multilevel degenerative disc disease/adjacent segment disease. A right paracentral/foraminal disc protrusion is present at C6 7 contributing to right greater than left C6 7 neural foraminal stenosis; disc height at C6 7 is estimated at approximately7 mm. No critical central stenosis is appreciated. CT of the cervical spine from 05/19/18 reveals a solid C5-C6 instrumented ACDF with multisegmental bridging anterior osteophytes and a slight scoliotic curvature that does not directly involve the C6 7 segment. Flexion/extension films of the cervical spine from 11/2017 appear stable with overall good preservation of physiologic movement at C6 7. On exam in the office, reveals left-sided anterior cervical incision is well-healed without surrounding erythema, edema, induration, or tenderness to palpation. Cervical spine is without deformities. Moderate restriction in range of motion with increase in pain with flexion, extension, and lateral rotation in both directions. Positive right-sided Spurling's. Negative Lhermitte's. Right shoulder is with full range of motion on active and passive evaluation with mild increase in pain with flexion and abduction; right shoulder is with mildly positive empty can test. Muscle strength is 5 out of 5 and equal bilateral upper extremities with the exception of very subtle right tricep weakness at 5 minus/5. DTRs are 2/4 and equal bilateral upper extremities with the exception of a depressed right tricep reflex. No myelopathic features are noted. Gait is normal. At this time, given the severity and refractory nature of patient's symptoms, as well as the suggestion of very early motor neuropathy, it is felt reasonable to offer definitive surgical intervention. Patient is shown his imaging on a large screen television and the findings are reviewed with him in detail. Based on his structural anatomy, the formal surgical recommendation is for a C6 7 disc arthroplasty. Patient is educated on this procedure versus the alternate option of a C6 7 ACDF. It is felt in his benefit especially given his young age and activity level to proceed with the motion preserving option. He is educated that if determined intraoperatively that a disc arthroplasty is not appropriate, we reserve the option to proceed with a C6 7 ACDF. Patient is educated on the planned surgical procedure and expected postoperative course. He is educated on risks of surgery including infection, blood loss, CSF leak, nerve injury, paralysis, refractory pain/incomplete benefit, post-decompressive neuritis, residual motor weakness, dysphagia, hoarseness of voice, esophageal or carotid injury, and heterotrophic ossification of the disc arthroplasty. He is educated on the risk of asymmetrically loading the disc implant secondary to his mild cervical scoliosis which could ultimately lead to chronic and intractable cervicalgia and the need for surgical revision. He is counseled on general risks of surgery including poor anesthesia response, coma, stroke, MT, DVT/PE, and . Patient states understanding of the above, and after discussion, wishes to proceed with surgical intervention via C6 7 disc arthroplasty in the near future at [facility] by Dr. Donohue. He will be assigned a tentative surgery date within the next several weeks and appropriate preadmission testing and clearances will be obtained. He is to avoid all aspirin, NSAIDs, and [id number]-[id number]/herbal supplements in the interim between now and surgery. He is to call sooner at any time with any changes, problems, or concerns. Patient states understanding and is in agreement with the above-stated plan. Patient is seen alongside Dr. Donohue who personally spoke with and examined the patient at time of office visit. Problem List/Past Medical History Ongoing Cervical radiculopathy DDD (degenerative disc disease), cervical History of fusion of cervical spine HTN - Hypertension Hyperlipidemia Neck pain JUAN C (obstructive sleep apnea) Historical No qualifying data Procedure/Surgical History Appendectomy CERVICAL FUSION Medications amitriptyline 25 mg oral tablet, 25 mg, 1 tabs, Oral, HS (at bedtime), PRN lisinopril 10 mg oral tablet Allergies Keflex (unknown) Social History Alcohol Current Substance Abuse Denies All Tobacco Former smoker, quit more than 30 days ago Use:. Family History Breast cancer: Mother and Sibling. Diabetes mellitus: Father, Grandfather (P) and Sibling. Fibromyalgia: Mother. Malignant tumor of lung: Grandfather (M). Stroke: Mother, Father, Grandmother (M) and Grandmother (P). Diagnostic Results No qualifying data available. No qualifying data available. No qualifying data available. No qualifying data available. Electronically signed by _ Irma Torres PA-C 06/09/18 16:56 EST Normal [facility] Neurosurgery Office/Clinic N tr 05-24-2018 Neurosurgery Office/Clinic Note Chief Complaint PT STATES- REVIEW IMAGING/DISCUSS SURGERY Physical Exam Vitals & Measurements BP: 112/68 HT: 185 cm WT: 116.9 kg DOSE WT: 116.9 kg BMI: 34.16 Additional Vitals Body Mass Index Measured: 34.16 kg/m2 BP Position/Location: Sitting, Left arm Peripheral Pulse Rate: 96 bpm Assessment/Plan 1. Cervical radiculopathy 2. History of fusion of cervical spine 3. DDD (degenerative disc disease), cervical Middle-aged gentleman with a previous history of C5 6 anterior cervical discectomy 3 years ago with good outcome now presents with cervical radicular syndrome consistent with right C7. He notes some improvement since onset, but continues to have right-sided radicular syndrome including classic dermatomal myotomal involvement as well as need to place his arm above the level of the shoulder and his hand on his head in order to achieve comfort so as to de-tension his C7 root. His examination reveals no finger extensor weakness but he does have triceps weakness at 5 minus. While formal surgical intervention via removal of old plate and expiration of C5 6 anterocervical discectomy with extension of fusion to C7 is recommended in light of his motor neuropathy and continued symptoms, the patient is quite resistant to the concept of surgery as he is fearful of further adjacent segment disease. His anatomy might be conducive to total disc arthroplasty though he does have mild scoliosis. Given his resistance to surgery and insistent on trial of pain management, he will be referred in short order for selective nerve root block of C7 right side and if this does not provide significant benefit and improvement of motor scores, surgery will be strongly urged. This surgeon personally met with the patient and conducted directed exam and personally discussed case with patient and correlated with imaging on large-screen to the-all questions answered to his satisfaction-he is grateful Problem List/Past Medical History Ongoing Cervical radiculopathy DDD (degenerative disc disease), cervical History of fusion of cervical spine HTN - Hypertension Hyperlipidemia Neck pain JUAN C (obstructive sleep apnea) Historical No qualifying data Procedure/Surgical History Appendectomy, CERVICAL FUSION. Medications amitriptyline 25 mg oral tablet, 25 mg, 1 tabs, Oral, HS (at bedtime), PRN lisinopril 10 mg oral tablet Allergies Keflex (unknown) Social History Alcohol Current Substance Abuse Denies All Tobacco Former smoker, quit more than 30 days ago Use:. Family History Breast cancer: Mother and Sibling. Diabetes mellitus: Father, Grandfather (P) and Sibling. Fibromyalgia: Mother. Malignant tumor of lung: Grandfather (M). Stroke: Mother, Father, Grandmother (M) and Grandmother (P). Electronically signed by _ Charanjit JOVEL MD, Ofelia Borges 05/24/18 14:15 EST Normal [facility] Neurosurgery Office/Clinic Note Chief Complaint PT STATES- REVIEW IMAGING/DISCUSS SURGERY Physical Exam Vitals & Measurements BP: 112/68 HT: 185 cm WT: 116.9 kg DOSE WT: 116.9 kg BMI: 34.16 Additional Vitals Body Mass Index Measured: 34.16 kg/m2 BP Position/Location: Sitting, Left arm Peripheral Pulse Rate: 96 bpm Assessment/Plan 1. Cervical radiculopathy 2. History of fusion of cervical spine 3. DDD (degenerative disc disease), cervical Physician Comments Patient is a pleasant 57-year-old right-handed male with a history of hypertension and previous C5 6 ACDF (op notes reviewed with utiliazation of [place] plate) performed in [address] Ortiz in [place], [place], who presents to the outpatient neurosurgical clinic today for follow up and imaging review on behalf of complaints of neck pain with right greater than left upper extremity radiculopathy. 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 He states he did well following with resolution in pain and return of normal left upper extremity motor strength. He states he continued to do well until the onset of his current complaints approximately 7 months ago after torquing his neck getting into a car. He states progressive worsening of symptoms since onset. Patient describes right-sided cervicalgia with radiation into the right medial scapular border, right tricep, dorsum of the right forearm, and right pointer finger in primarily a C7 distribution. He describes his pain as burning and notes associated numbness and paresthesias. Patient states his pain syndrome is constant, but is worse with extension of the neck. He states at times, he is forced to raise his right arm over his head in order to alleviate symptoms. Patient reports the onset of much milder similar symptoms into the left upper extremity approximately 6 weeks ago without precipitating injury. Patient does sense a subjective sense of weakness in his right upper extremity without true motor loss. He denies decreased dexterity or gait disturbances/imbalance. He denies thoracic or lumbar pain. He denies lower extremity radicular pain, numbness, paresthesias, or weakness. He denies bowel/bladder incontinence or saddle paresthesias. Patient currently rates his pain at 4-8/10 on a standard pain scale. He states it is interrupting his sleep and activity level/function. Patient states that his symptoms have been refractory to attempts at health care technician, acupuncture, and decompressive therapies. In addition, he has established with a pain brokerage manager and has underwent various injection modalities including right C5 and C6 selective nerve root blocks 11/2017 and 12/2017, as well as more recent C7-T1 interlaminar LIZZETTE 02/14/18 without benefit. Patient denies formal physical therapy. Of note, patient states that his symptoms prompted him to visit with an alternate neurosurgeon (Dr. Galan in [facility]) 02/2018. He states that no formal surgical recommendation was given, however there was postulation regarding the possibility of a C6 7 artificial disc. Patient states that he was not pleased with the care he received and has chosen to establish for a second opinion in our neurosurgical clinic. New MRI of the cervical spine from 05/19/18 reveals a C5 6 ACDF with multilevel degenerative disc disease/adjacent segment disease. A right paracentral/foraminal disc protrusion is present at C6 7 contributing to right greater than left C6 7 neural foraminal stenosis; disc height at C6 7 is estimated at 7 mm. No critical central stenosis is appreciated. CT of the cervical spine from 05/19/18 reveals a solid C5-C6 instrumented ACDF with multisegmental bridging anterior osteophytes and a slight scoliotic curvature. Flexion/extension films of the cervical spine from 11/2017 appear stable. On exam in the office, reveals left-sided anterior cervical incision is well-healed without surrounding erythema, edema, induration, or tenderness to palpation. Cervical spine is without deformities. Moderate restriction in range of motion with increase in pain with flexion, extension, and lateral rotation in both directions. Positive right-sided Spurling's. Negative Lhermitte's. Right shoulder is with full range of motion on active and passive evaluation with mild increase in pain with flexion and abduction; right shoulder is with mildly positive empty can test. Muscle strength is 5 out of 5 and equal bilateral upper extremities with the exception of very subtle right tricep weakness at 5 minus/5. DTRs are 2/4 and equal bilateral upper extremities with the exception of a depressed right tricep reflex. No myelopathic features are noted. Gait is normal. At this time, the role for further surgical intervention in addressing patient's cervical spine pathology and clinical syndrome remains somewhat unclear. His presentation is consistent with a right greater than left C7 radiculopathy attributed to the pathology seen at C6 7. Patient is shown his imaging on a large screen television and the findings are reviewed with him in detail. He is educated that future surgical intervention would demand a C6 7 ACDF versus a C6 7 disc arthroplasty with concerns that the slight cervical scoliosis present could produce an abnormal wear pattern versus or incomplete integration of the device. Following extensive discussion, patient is hesitant to proceed with any surgical intervention and would prefer to attempt additional conservative management via a right C7 selective nerve root block prior to any further surgical consideration. As subtle motor weakness is appreciated on exam, it is felt that any injection modalities should be conducted on an expedited manner and that patient be followed closely via clinical monitoring. Patient is clearly educated on the risks of worsened motor weakness or permanent motor deficit and states understanding. We did assist the patient in scheduling an appointment with his pain brokerage manager for later this week. He will follow up in our office within the next several weeks for reevaluation and further surgical discussion. He is to call sooner at any time with any changes, problems, or concerns. Patient states understanding and is in agreement with the above-stated plan. Patient is seen alongside Dr. Donohue who personally spoke with and examined the patient at time of office visit. Problem List/Past Medical History Ongoing Cervical radiculopathy DDD (degenerative disc disease), cervical History of fusion of cervical spine HTN - Hypertension Hyperlipidemia Neck pain JUAN C (obstructive sleep apnea) Historical No qualifying data Procedure/Surgical History Appendectomy, CERVICAL FUSION. Medications amitriptyline 25 mg oral tablet, 25 mg, 1 tabs, Oral, HS (at bedtime), PRN lisinopril 10 mg oral tablet Allergies Keflex (unknown) Social History Alcohol Current Substance Abuse Denies All Tobacco Former smoker, quit more than 30 days ago Use:. Family History Breast cancer: Mother and Sibling. Diabetes mellitus: Father, Grandfather (P) and Sibling. Fibromyalgia: Mother. Malignant tumor of lung: Grandfather (M). Stroke: Mother, Father, Grandmother (M) and Grandmother (P). Diagnostic Results No qualifying data available. No qualifying data available. No qualifying data available. No qualifying data available. Electronically signed by _ Irma Torres PA-C 05/24/18 14:21 EST Normal [facility] CT Spine Cervical w/o [place] 05-20-2018 CT Spine Cervical w/o Contrast History: Prior fusion with posterior neck pain, numbness and tingling of both arms. TECHNIQUE: Helical axial images were obtained from the skull base through the cervical spine into the thoracic inlet. Multiplanar reconstructions were performed. COMPARISON: None. FINDINGS: There has been anterior cervical fusion C5-6. No complication involving the hardware. There are degenerative disc disease mild degree of C4-5 and C6-7. 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 This of broad-based disc bulge suspected at this level. Mild neural foraminal narrowing on the right at C5-6. Craniocervical junction is normal. Soft tissues are normal. Thoracic inlet structures are unremarkable. IMPRESSION: 1. Satisfactory postoperative changes anterior cervical fusion C6-7. No complication is seen. 2. 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 3. No acute fracture or acute process is seen. Radiation Dose Estimate: CTDI(mGy):0.472256 / / / kVp:120.963198 / mAs:0.031072 / / / DLP(mGy-cm):3.233321Rqxk Part: Neck Final Dictated by: Suzanna Gonzalez MD Dictated DT/TM: 05.20.2018 9:38 am Signed by: Suzanna Gonzalez MD Signed (Electronic Signature): 05.20.2018 11:32 am Transcribed by: AJ Transcribed DT/TM: 05.20.2018 11:08 am (If Report Is Signed, Electronically Signed in Other Vendor System) Normal [facility] MRI Spine Cervical w/ + w/o Contraston 05-20-2018 MRI Spine Cervical w/ + w/o Contrast MRI cervical spine with and without contrast from 05/19/2018 Indication: Neck pain Comparison: C-spine MRI on 12/02/2017 Technique: Multiplanar and multisequential MRI images of the cervical spine were obtained with and without contrast. No contrast was administered Findings: The alignment and marrow signal intensity of the cervical spine are normal. The signal intensity and morphology of the cervical spinal cord are within normal limits. There is no evidence of marrow edema on STIR. C2-3: Mild bilateral facet arthropathy. C3-4: Mild disc desiccation. Mild endplate degenerative changes. Mild bilateral facet arthropathy. Mild to moderate left-sided neural foraminal narrowing. C4-5: Moderate disc spur complex effacing the anterior CSF space and causing mild mass effect on the anterior spinal cord. This is superimposed on mild bilateral facet arthropathy. There is moderate to severe right and moderate left-sided neural foraminal narrowing. Mild to moderate spinal canal stenosis. C5-6: Postoperative changes compatible with anterior and interbody fusion. Patent spinal canal. Moderate to severe right and moderate left-sided neural foraminal narrowing. C6-7: Moderate size right-sided paracentral and foraminal disc extrusion causing severe mass effect on the right-sided C7 nerve root and severe constriction of the right lateral recess. Mild to moderate mass effect on the right anterior spinal cord. This is superimposed on moderate right and mild left-sided uncovertebral degenerative changes and mild bilateral facet arthropathy. There is severe bilateral neural foraminal narrowing and moderate to severe spinal canal stenosis. C7-T1: Mild bilateral facet arthropathy. Mild bilateral neural foraminal narrowing. Epidural enhancement in the right lateral recess at C6-C7, likely reactive. Impression: 1. Severe degenerative changes at C6-C7. Moderate degenerative changes in the other levels. No significant change comparing to the prior study. 2. Postoperative changes compatible with anterior and interbody fusion at C5-C6 in satisfactory alignment. Final Dictated by: Trip Hilario MD Dictated DT/TM: 05/20/2018 10:15 am Signed by: Trip Hilario MD Signed (Electronic Signature): 05/20/2018 10:28 am (If Report Is Signed, Electronically Signed in Other Vendor System) Normal [facility] .eGFRon 05-19-2018 eGFR AA >60 Normal >=60 [facility] Comment on above: Result Comment: Resu lt = 0-14.9 mL/min/1.73 m2 Kidney failure or Dialysis Result = 15-29 mL/min/1.73 m2 Severe decrease in GFR Result = 30-59 mL/min/1.73 m2 Moderate decrease in GFR Result >= 60 mL/min/1.73 m2 Normal or increased GFR Performed By: #### E GFR #### [address] [address] eGFR Non-AA >60 Normal >=60 [facility] Comment on above: Result Comment: Resu lt = 0-14.9 mL/min/1.73 m2 Kidney failure or Dialysis Result = 15-29 mL/min/1.73 m2 Severe decrease in GFR Result = 30-59 mL/min/1.73 m2 Moderate decrease in GFR Result >= 60 mL/min/1.73 m2 Normal or increased GFR Chronic kidney disease is defined as either kidney damage or GFR < 60 mL/min/1.73 m2 for >= 3 months. Kidney damage is defined as pathologic abnormalities or markers of damage including abnormalities in blood or urine tests or imaging studies. This GFR is NOT used for medication dosing. Performed By: #### E GFR #### [place] [id number] Crea iStaton 05-19-2018 Crea iStat 1.2 mg/dL Normal 0.6-1.3 [facility] Comment on above: Performed By: #### I STATCREA #### [place] [address] Neurosurgery Office/Clinic N ofeliaeon 04-25-2018 Neurosurgery Office/Clinic Note Chief Complaint NEW PT, PT STATES- NECK PAIN Physical Exam Vitals & Measurements BP: 132/98 HT: 185 cm WT: 118.5 kg DOSE WT: 118.5 kg BMI: 34.62 Additional Vitals Body Mass Index Measured: 34.62 kg/m2 BP Position/Location: Sitting, Left arm Peripheral Pulse Rate: 76 bpm Assessment/Plan 1. Neck pain Ordered: CT Spine Cervical w/o Contrast MRI Spine Cervical w/ + w/o Contrast 2. DDD (degenerative disc disease), cervical Ordered: CT Spine Cervical w/o Contrast MRI Spine Cervical w/ + w/o Contrast 3. History of fusion of cervical spine Ordered: CT Spine Cervical w/o Contrast MRI Spine Cervical w/ + w/o Contrast Cervical radiculopathy Ordered: CT Spine Cervical w/o Contrast MRI Spine Cervical w/ + w/o Contrast Physician Comments Patient is a pleasant 57-year-old right-handed male with a history of hypertension and previous C5 6 ACDF performed in [address] Ortiz in [place], [place], who presents to the outpatient neurosurgical clinic today as a new patient for a second opinion on behalf of complaints of neck pain with right greater than left upper extremity radiculopathy. Patient states that he underwent C5 6 ACDF in 2015 secondary to a left upper extremity radicular syndrome with motor neuropathy. He states he did well following with resolution in pain and return of normal left upper extremity motor strength. He states he continued to do well until the onset of his current complaints approximately 6-7 months ago after hitting his head getting into a car. He states progressive worsening of symptoms since onset. Patient describes right-sided cervicalgia with radiation into the right medial scapular border, right tricep, dorsum of the right forearm, and right pointer finger in primarily a C7 distribution. He describes his pain as burning and notes associated numbness and paresthesias. Patient states his pain syndrome is constant, but is worse with extension of the neck. Patient reports the onset of much milder similar symptoms into the left upper extremity approximately 3-4 weeks ago without precipitating injury. Patient does sense a subjective sense of weakness in his right upper extremity without true motor loss. He denies decreased dexterity or gait disturbances/imbalance. He denies thoracic or lumbar pain. He denies lower extremity radicular pain, numbness, paresthesias, or weakness. He denies bowel/bladder incontinence or saddle paresthesias. Patient currently rates his pain at 4-8/10 on a standard pain scale. He states it is interrupting his sleep and activity level/function. Patient states that his symptoms have been refractory to attempts at health care technician, acupuncture, and decompressive therapies. In addition, he has established with a pain brokerage manager and has underwent various injection modalities including right C5 and C6 selective nerve root blocks 11/2017 and 12/2017, as well as more recent C7-T1 interlaminar LIZZETTE 02/14/18 without benefit. Patient denies formal physical therapy. Patient states that his symptoms prompted him to visit with an alternate neurosurgeon (Dr. Galan in [facility]) 02/2018. He states that no formal surgical recommendation was given, however there was postural relation regarding the possibility of a C6 7 artificial disc. Patient states that he was not pleased with the care he received and has chosen to establish for a second opinion in our neurosurgical clinic. PAST MEDICAL HISTORY: Hypertension Hyperlipidemia Obstructive sleep apnea PAST SURGICAL HISTORY: C5 6 ACDF, 03/2015, Dr. Ortiz in [place], Located Within [facility] Appendectomy ALLERGIES: Keflex causes rash MEDICATIONS: see med list SOCIAL HISTORY: Patient is . He has 1 grown child. He lives in [place]. He denies tobacco, alcohol, or recreational drugs. Patient is employed in [employer], as well as training of horses. He states no bureau of workman's compensation or third green party insurance claims based on today's office visit. FAMILY HISTORY: CVA: Mother, father Diabetes: Father, brother Cancer: Mother and sister with breast cancer REVIEW OF SYSTEMS: Noncontributory except for above stated GENERAL PHYSICAL EXAM: GENERAL: well developed, well nourished, no distress HEAD: normocephalic, atraumatic EYES: anicteric, atraumatic MUCOUS MEMBRANES: Moist, no evidence of dehydration NECK: Previous left-sided anterior cervical incision is well-healed without surrounding erythema, edema, induration, or tenderness to palpation; neck is supple, moderate restriction in range of motion with increase in pain with flexion, extension, and lateral rotation in both directions, no deformity noted; no cervical adenopathy; no carotid bruits; no tracheal deviation; no winging of the scapula; no drooping of the shoulder; negative Lhermittes; positive right-sided Spurling's CHEST: clear CARDIAC: normal heart sounds no murmurs or extra sounds SHOULDER: Right shoulder is with full range of motion on active and passive evaluation with mild increase in pain with flexion and abduction; right shoulder is with mildly positive empty can test PERIPHERAL NERVES: no tinel's signs carpal, cubital, or peroneal, no digital compression provocation SPINE: no evidence of scoliosis, rib hump, deformities or step-offs. Mild myospasms are noted throughout the dorsal cervical paravertebral musculature bilaterally, right greater than left without associated tenderness to palpation VASCULAR: strong pulses with rapid capillary refill, no evidence of Raynaud's phenomenon, autonomic disturbance, venous insufficiency, or thoracic outlet syndrome. HIP: no Fabere's or Ariel's sign LUMBAR: range of motion normal; no evidence of neurotension signs such as straight leg raise or reverse straight leg raise or femoral stretch test. PAIN BEHAVIOR: No evidence of Bernadine's findings or overt pain behavior. NEUROLOGICAL EXAM: MENTAL STATUS: Awake alert and appropriate with normal mental status exam an executive function CRANIAL NERVES: Round reactive pupils without ophthalmoplegia, no visual field defects to confrontation, no nystagmus, no evidence of Júnior syndrome, equal facies, equal auditory perception to confrontation, bilaterally upgoing palate, midline tongue without atrophy or fasciculations and full range of motion, equal trapezial strength and sternocleidomastoid strength. MOTOR: normal tone and bulk in all groups with full power; no evidence of atrophy or fasciculations. DEEP TENDON REFLEXES: All reflexes 2+ no evidence of myelopathic features such as Cat's, pectoral reflex, clonus, Babinski SENSORY EXAM: No dermatomal changes to dorsal column or spinal thalamic function, no suspended sensory levels. CEREBELLAR: No lateralization, no dysmetria or dysdiadochokinesia. GAIT: Patient demonstrates full ability to toe and heel walk as well as squat/1 leg squat and demonstrates; normal base, station, stride length, and liz. Imaging: MRI cervical spine 11/2017: Axial images are of somewhat poor/nondiagnostic quality due to low resolution, but C5 6 instrumented ACDF is present with adjacent segment disease but is most advanced at C6 7 with a large rightward C6 7 disc osteophyte complex contributing to severe right C6 7 neuro foraminal stenosis; no critical central stenosis AP/lateral/flexion/exten christen films cervical spine 11/2017: Solid appearing C5 6 ACDF without instability Assessment/plan: Patient is a pleasant 57-year-old right-handed male with a history of hypertension and previous C5 6 ACDF performed in [address] Ortiz in [place], [place], who presents to the outpatient neurosurgical clinic today as a new patient for a second opinion on behalf of complaints of neck pain with right greater than left upper extremity radiculopathy. 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 He states he did well following with resolution in pain and return of normal left upper extremity motor strength. He states he continued to do well until the onset of his current complaints approximately 6-7 months ago after hitting his head getting into a car. He states progressive worsening of symptoms since onset. Patient describes right-sided cervicalgia with radiation into the right medial scapular border, right tricep, dorsum of the right forearm, and right pointer finger in primarily a C7 distribution. He describes his pain as burning and notes associated numbness and paresthesias. Patient states his pain syndrome is constant, but is worse with extension of the neck. Patient reports the onset of much milder similar symptoms into the left upper extremity approximately 3-4 weeks ago without precipitating injury. Patient does sense a subjective sense of weakness in his right upper extremity without true motor loss. He denies decreased dexterity or gait disturbances/imbalance. He denies thoracic or lumbar pain. He denies lower extremity radicular pain, numbness, paresthesias, or weakness. He denies bowel/bladder incontinence or saddle paresthesias. Patient currently rates his pain at 4-8/10 on a standard pain scale. He states it is interrupting his sleep and activity level/function. Patient states that his symptoms have been refractory to attempts at health care technician, acupuncture, and decompressive therapies. In addition, he has established with a pain brokerage manager and has underwent various injection modalities including right C5 and C6 selective nerve root blocks 11/2017 and 12/2017, as well as more recent C7-T1 interlaminar LIZZETTE 02/14/18 without benefit. Patient denies formal physical therapy. Patient states that his symptoms prompted him to visit with an alternate neurosurgeon (Dr. Galan in [facility]) 02/2018. He states that no formal surgical recommendation was given, however there was postural relation regarding the possibility of a C6 7 artificial disc. Patient states that he was not pleased with the care he received and has chosen to establish for a second opinion in our neurosurgical clinic. At this time, the role for further surgical intervention in addressing patient's current pain syndrome and cervical spine pathology remains somewhat unclear. Based upon the severity and refractory nature of his pain, it is quite possible that he will demand surgery. That said, additional imaging is recommended in order to assist with formal surgical recommendations and planning. Given the poor quality and low resolution of patient's previous cervical MRI, as well as the fact that he has had the more recent onset of left upper extremity symptoms since the time of previous cervical MRI, a new high resolution MRI of the cervical spine with and without contrast is recommended. In addition, patient will have a CT of the cervical spine to better evaluate the bony anatomy and for markers of degeneration and instability/micro-instab ility. Patient will follow-up in our office immediately after imaging for reevaluation. He is to call sooner with changes, problems, or concerns. Patient states understanding and is in agreement with the above-stated plan. Patient's case and imaging is discussed with Dr. Donohue who is in agreement with the above-stated plan. Problem List/Past Medical History Ongoing DDD (degenerative disc disease), cervical History of fusion of cervical spine HTN - Hypertension Hyperlipidemia Neck pain JUAN C (obstructive sleep apnea) Historical No qualifying data Procedure/Surgical History Appendectomy, CERVICAL FUSION. Medications amitriptyline 25 mg oral tablet, 25 mg, 1 tabs, Oral, HS (at bedtime), PRN lisinopril 10 mg oral tablet Allergies Keflex (unknown) Social History Alcohol Current Substance Abuse Denies All Tobacco Former smoker, quit more than 30 days ago Use:. Family History Breast cancer: Mother and Sibling. Diabetes mellitus: Father, Grandfather (P) and Sibling. Fibromyalgia: Mother. Malignant tumor of lung: Grandfather (M). Stroke: Mother, Father, Grandmother (M) and Grandmother (P). Diagnostic Results No qualifying data available. No qualifying data available. No qualifying data available. No qualifying data available. Electronically signed by _ Irma Torres PA-C 04/25/18 15:00 EST Normal [facility] Encounters Encounter Date Encounter Type Care Provider Facility Start: 10-29-2023 End: 10-29-2023 ambulatory WAI DINH Not Available Start: 10-28-2023 ambulatory [facility] Start: 09-09-2023 End: 09-09-2023 ambulatory [facility] Start: 12-20-2020 End: 12-21-2020 ambulatory WAI DINH Facility:[facility] Start: 04-08-2020 End: 04-09-[address] ZAID CASEY Facility:[facility] Start: 2018 End: 09-30-2018 Patient encounter procedure IRMA TORRES Facility:[facility] Start: 08-12-2018 End: 08-13-2018 Patient encounter procedure IRMA TORRES Facility:[facility] Start: 07-11-2018 End: 07-12-2018 Patient encounter procedure BRANDY WASHBURN PATRICKALEJANDRO Facility:[facility] Start: 07-01-2018 End: 07-03-2018 Patient encounter procedure OFELIA BORGES DONOHUE Facility:[facility] Start: 06-22-2018 End: 06-23-2018 Patient encounter procedure OFELIA BORGES DONOHUE Facility:[facility] Start: 05-19-2018 End: 05-20-2018 Patient encounter procedure IRMA WOODWARD LORICHAN Facility:[facility] Payers Date Payer Category Payer Unknown [id number] 2018 Self-pay 2018 Private Health Insurance 1960 Unknown [id number] 2.16.8 [id number] 1960 Unknown [id number] 2.16.8 [id number] 1960 Unknown [id number] 2.16.8 [id number] 1960 Unknown [id number] 2.16.8 [id number] 1960 Unknown [id number] 2.16.8 [id number] 1960 Unknown [id number] 2.16.8 [id number] 1960 Unknown [id number] 2.16.84 [id number] 1960 Unknown [id number] 2.16.84 [id number] 1960 Unknown [id number] 2.16.8 [id number] 1960 Unknown [id number] 2.16.8 [id number] 1960 Unknown [id number] 2.16.84 [id number] 1957 Medicare [id number] Summary Purpose Family History No Family History Records FoundNo Family History Records FoundNo Family History Records FoundNo Family History Records FoundNo Family History Records Found Advance Directives No Advanced Directives Records FoundNo Advanced Directives Records FoundNo Advanced Directives Records FoundNo Advanced Directives Records FoundNo Advanced Directives Records Found Hospital Course Note Admission Information Admitt ed for elective C6 7 anterior cervical discectomy for acute cervical radiculopathy with motor neuropathy; previous C5 6 anterior cervical discectomy with adjacent segment disease Hospital Course Pleasant 57-year-old gentleman with a previous history of C5 6 anterior cervical discectomy in [place], Located [facility] with [employer] [place] elite plate with good outcome. Patient presented to the neurosurgery clinic with acute cervical radiculopathy with motor neuropathy in the C7 distribution right side. as a result of imaging, it is felt that the patient should undergo immediate decompression and stabilization. Patient was provided informed consent and was in agreement. He was admitted July 01 and underwent uncomplicated removal of previous anterior cervical plate of C5 6 and exploration of fusion as well as C6 7 anterior cervical discectomy with interbody fusion with cortical cancellus allograft and placement of [place] elite plate. Postoperatively, the patient reveal (more content not included)... Additional Source Comments (unrecognized sect ion and content) No Status Records FoundNo Status Records FoundNo Status Records FoundNo Status Records FoundNo Status Records Found INFORMATION SOURCE (unrecogn ized section and content) DATE CREATED AUTHOR 02/14/2019 [facility] DATE CREATED AUTHOR AUTHOR'S ORGANIZ ATION 12/26/2020 [facility] DATE CREATED AUTHOR AUTHOR'S ORGANIZ ATION 07/15/2022 [facility] DATE CREATED AUTHOR AUTHOR'S ORGANIZ ATION 10/29/2023 [facility] DATE CREATED AUTHOR AUTHOR'S ORGANIZ ATION 11/03/2023 [facility] EPIC FOR RECORDS PERTAINING TO PATIENTS WHO ARE OR HAVE BEEN ENROLLED IN A CHEMICAL DEPENDENCY/SUBSTANCEABUSE PROGRAM, SOME INFORMATION MAY BE OMITTED. This clinical summary was aggregated from multiple sources. Caution should be exercised in using it in the provision of clinical care. This summary normalizes information from multiple sources, and as a consequence, information in this document may materially change the coding, format and clinical context of patient data. In addition, data may be omitted in some cases. CLINICAL DECISIONS SHOULD BE BASED ON THE PRIMARY CLINICAL RECORDS. [facility] provides no warranty or guarantee of the accuracy or completeness of information in this document.
--- NOTE | 2023-11-11 10:38 | XR_ITS ---
[address] [address] Patient Name: SUZANNA ESPINAL MRN: [id number] date: 1960 Sex: M Assigned Patient Location: [facility] Current Patient Location: [facility] Accession/Order Number: [id number] Exam Date: 11/11/2023 10:45 Report Date: 11/11/2023 12:04 At the request of: JORGE LUIS OWUSU Procedure: XR chest 2V EXAMINATION: XR chest 2V HISTORY: Preop exam COMPARISON: No relevant comparison available. TECHNIQUE: PA and lateral FINDINGS: LUNGS: No significant pulmonary parenchymal abnormalities. VASCULATURE: No increased pulmonary vasculature. PLEURA: No pneumothorax, effusion, or pleural thickening. CARDIAC: No cardiomegaly or cardiac silhouette abnormality. MEDIASTINUM: No visible mass or adenopathy. BONES: No fracture or visible bone lesion. Cervical fusion hardware OTHER: Negative. XR/XR chest 2V IMPRESSION: No acute cardiopulmonary process Electronically authenticated by: MATY STILL Date: 11/11/2023 12:04
[2023-11-11 11:17] LABS: Anion Gap 12.9; BUN Creatinine Ratio 12.8; Calcium 8.1 mg/dL (8.5-10.1); Carbon Dioxide 25.4 mmol/L (21.0-32.0); Chloride 105 mmol/L (98-107); Estimated GFR (African America >60 (>=60); Estimated GFR (Non-African Ame >60 (>=60); Glucose 101 mg/dL (74-106); Potassium 4.3 mmol/L (3.5-5.1); Sodium 139 mmol/L (136-145)
== END 2023-11-11 09:56 | disposition home or self-care (01) ==
LOC: PST 10:01
PROVIDERS: PCP Family Medicine; Visit Provider Student in an Organized Health Care Education/Training Program
DX: Z01.810 Encounter for preprocedural cardiovascular examination (principal); Z01.812 Encounter for preprocedural laboratory examination; I83.813 Varicose veins of bilateral lower extremities with pain
CPT/HCPCS: 71046; 80048; 93005

== ENCOUNTER 2023-11-25 10:57 | Day surgery (SDC) | payer MEDICARE, SELFPAY ==
[2023-11-11 10:16] VITALS: BP 98/54; PULSE 68; TEMP 36.3; O2SAT 97; BMI 32.5
[2023-11-25 11:00] VITALS: BP 128/85; PULSE 82; TEMP 36.2; O2SAT 99; BMI 32.3
[2023-11-25] MEDS: LACTATED RINGER'S SOLUTION 1,000 ML 50 ML IV (11:22)
[2023-11-25] MEDS: SODIUM TETRADECYL SULFATE 3 % 60 MG/2 ML VIAL INJ (12:30)
[2023-11-25] MEDS: 0.9 % SODIUM CHLORIDE 10 ML VIAL INJ (12:30)
--- NOTE | 2023-11-25 12:38 | PM.GSPRC ---
Indications for Procedure: Bilateral lower extremity varicose veins and pain Pre-op diagnosis: Bilateral lower extremity varicose veins with pain Post-op diagnosis: same as pre-op Procedure: Ultrasound-guided injection sclerotherapy of bilateral lower extremity varicose veins Findings: Unremarkable operative course multiple varicose veins in bilateral lower extremities were injected using 0.75 sodium Sotradecol Implants: None Anesthesia: MAC Surgeon: Garfield Foote Procedure Summary: The patient was taken back to the operating room and placed in the supine position. Both legs were prepped and draped in usual sterile surgical fashion. After timeout a safety pause under ultrasound guidance multiple varicosities were identified in both lower extremities below the knee. 3% sodium Sotradecol while was diluted to 0.75%. Multiple veins were injected in both lower extremities. Butterfly was used to access the vein under ultrasound guidance blood was aspirated followed by slow injection of the sclerosing agent. We had excellent result at the end. Compression therapy was placed in both lower extremities. Estimated blood loss (mL): 5 Specimens: None Complications: No Pathology: none sent Condition: stable Disposition: PACU
[2023-11-25 12:41] VITALS: BP 125/87; PULSE 68; TEMP 36.5; O2SAT 97
[2023-11-25 13:11] VITALS: BP 126/81; PULSE 62; O2SAT 98
== END 2023-11-25 13:11 | disposition home or self-care (01) ==
PROVIDERS: PCP Family Medicine; Visit Provider Student in an Organized Health Care Education/Training Program
PROC: (CPT 36471; principal; 2023-11-25 12:00)
DX: I83.813 Varicose veins of bilateral lower extremities with pain (principal); Z87.891 Personal history of nicotine dependence; G47.33 Obstructive sleep apnea (adult) (pediatric); E78.5 Hyperlipidemia, unspecified; I10 Essential (primary) hypertension; K21.9 Gastro-esophageal reflux disease without esophagitis
CPT/HCPCS: 36471; 36415; 76942; J1100; J2250; J2405; J2704